=== PATIENT | female | born 1975 | race Caucasian/White ===

== ENCOUNTER 2018-10-26 16:00 | Outpatient (RCR) | payer BC, SELFPAY | END 2018-10-26 16:05 | disposition home or self-care (01) | LOC: PT 16:00 | DX: M86.20 Subacute osteomyelitis, unspecified site (principal) | CPT/HCPCS: 97163; 97164; 97597; 97598 ==

== ENCOUNTER 2020-03-22 07:58 | Outpatient (RCR) | payer BC, SELFPAY | END 2020-03-22 07:59 | disposition home or self-care (01) | LOC: PT 07:58 | PROVIDERS: PCP Family Medicine; Visit Provider Family Medicine | DX: M76.31 Iliotibial band syndrome, right leg (principal) ==

== ENCOUNTER 2020-03-26 09:19 | Emergency (ER) | payer BC, SELFPAY ==
[2020-03-26 09:30] VITALS: BP 137/83; PULSE 96; RESP 16; TEMP 36.9; O2SAT 96; BMI 58.5
[2020-03-26 09:53] VITALS: BP 137/83; PULSE 96; RESP 16; TEMP 36.9; O2SAT 96
--- NOTE | 2020-03-26 09:53 | HMH.EDUTC ---
[facility] [place]ression: Exposure to COVID-19 virus Disposition: Home, Self-Care Condition on Discharge: Good Instructions: Preventing the Spread of Coronavirus Discharge Instructions Additional Instructions: Drink plenty of fluids. Take tylenol for pain or fever. Follow up with your regular doctor. GO TO THE ER FOR ANY WORSENING SYMPTOMS Referrals: Barbara Florian [Primary Care Provider] - Time of Disposition: 09:56 Medical Decision Making - Medical Records Medical records reviewed: No: I reviewed the patient's medical records. - Jones Inquiry Pt receiving controlled substance: No Vital Signs: 03/26/20 09:30 03/26/20 09:53 Temperature 98.4 F 98.4 F Temperature Source Oral Pulse Rate 96 H Pulse Rate [Left Brachial] 96 H Respiratory Rate 16 16 Blood Pressure 137/83 Blood Pressure [Left Arm] 137/83 Blood Pressure Mean [Left Arm] 101 Blood Pressure Source [Left Arm] Automatic Cuff Blood Pressure Position [Left Arm] Sitting 02 Sat by Pulse Oximetry 96 Oxygen Delivery Method Room Air Orders (Tests/Meds): ORDERS Category Date Time Status Covid-19 Nasal PCR ([facility]) Routine Lab 03/26/20 09:45 [place] [facility] [place] - General Stated complaint: covid exposure Time Seen by Provider: 03/26/20 09:53 - History of Present Illness Provider Complaint: She states that that she was exposed to covid virus at her cardiology office last week. She denies any symptoms so far. - Related Data Home Medications Medication Instructions Recorded Confirmed Insulin Glargine,Hum.rec.anlog 45 unit SQ BID 10/03/17 07/04/19 [Chrisaglar Pravin U-100] buspirone 10 mg tablet 10 mg PO tab 07/04/19 07/04/19 triamcinolone acetonide 0.1 % TOPICAL 07/04/19 07/04/19 topical cream Previous Rx's Medication Instructions Recorded Amoxicillin/Potassium Clav 1 tab PO Q12H 10 Days #20 tab 08/02/19 [Augmentin 875-125 Tablet] predniSONE [Deltasone 10mg tablet] 10 mg PO BID 4 Days #8 tab 08/02/19 Allergies Allergy/AdvReac Type Severity Reaction Status Date / Time azithromycin [AZITHROMYCIN] Allergy Mild Verified 07/04/19 16:02 sulfamethoxazole Allergy Mild Verified 07/04/19 16:02 [From BACTRIM] trimethoprim [From BACTRIM] Allergy Mild Verified 07/04/19 16:02 [facility] History - Hepatitis A Screen Attestation statement:: This patient has been screened for Hepatitis A risk factors. I have reviewed the patient's past medical history: Yes Medical History: Reports:: Diabetes Mellitus Type 2 Denies:: Cancer, Diabetes Mellitus Type 1, MRSA Other Surgeries: Yes: (x2), Hernia Repair, Hysterectomy-Total Amputation: No Fractures: No - Social History Smoking Status: Never smoker Alcohol Intake: never Occupational Status: employed Family Hx:: Diabetes, Cancer, Heart Attack, Hyperlipidemia, Hypertension ROS Obtained: Yes All systems reviewed & no additional complaints - Constitutional Constitutional: Reports system reviewed and no additional complaints, except as docu - Eyes Eyes: Reports system reviewed and no additional complaints, except as docu - ENT Ears, Nose, Mouth, and Throat: Reports system reviewed and no additional complaints, except as docu - Cardiovascular Cardiovascular: Reports system reviewed and no additional complaints, except as docu - Respiratory Respiratory: Yes system reviewed and no additional complaints, except as docu - Gastrointestinal Gastrointestingal: Reports: system reviewed and no additional complaints, except as docu Physical Exam - General General appearance: alert, in no apparent distress - Head Head exam: atraumatic, normocephalic, normal inspection - Eye Eye exam: Present: normal appearance, PERRL, EOMI - ENT ENT exam: Present: normal exam, normal oropharynx, mucous membranes moist, TM's normal bilaterally, normal external ear exam - Neck Neck exam: Present: normal inspection, full ROM,
--- NOTE | 2020-03-26 14:25 | PC.NURSE ---
PATIENT NOTIFIED OF POSITIVE COVID RESULT
== END 2020-03-26 09:55 | disposition home or self-care (01) ==
PROVIDERS: Emergency Provider Nurse Practitioner Family; PCP Family Medicine
DX: U07.1 COVID-19 (principal); E11.9 Type 2 diabetes mellitus without complications; Z88.1 Allergy status to other antibiotic agents; Z88.2 Allergy status to sulfonamides; Z79.899 Other long term (current) drug therapy
CPT/HCPCS: 99201; U0003

== ENCOUNTER → 2020-07-17 05:21 | Outpatient (CLI) | payer BC, SELFPAY ==
[2020-07-17 06:30] LABS: Hemoglobin A1C 9.2 % (4.0-6.0)
[2020-07-17 06:53] LABS: Basophils % 0.6 % (0.1-2.0); Eosinophils # 0.1 K/mm3 (0.0-0.4); Hematocrit 42.8 % (37.0-47.0); Hemoglobin 13.6 g/dL (12.2-16.2); Lymphocytes # 1.8 K/mm3 (0.7-4.5); Lymphocytes % 26.5 % (10-50); Mean Corpuscular HGB Conc 31.9 g/dL (31.8-35.4); Mean Corpuscular Hemoglobin 27.9 pg (27.0-31.2); Mean Corpuscular Volume 87.4 fl (81-99); Mean Platelet Volume 7.9 fl (7.4-10.4); Monocytes # 0.4 K/mm3 (0.1-1.0); Monocytes % 5.4 % (1.7-9.3); Neutrophils # 4.5 K/mm3 (1.8-7.8); Neutrophils % 65.4 % (37.0-80.0); Platelet Count 244 K/mm3 (142-424); Red Cell Distribution Width 14.1 % (11.5-17.5); White Blood Count 6.9 K/mm3 (4.8-10.8)
[2020-07-17 06:58] LABS: Chloride 104 mmol/L (98-107); Potassium 4.2 mmoL/L (3.5-5.1); Sodium 138 mmol/L (136-145)
[2020-07-17 07:00] LABS: Alanine Aminotransferase 26 U/L (12-78); Alkaline Phosphatase 67 U/L (38-126); Aspartate Amino Transferase 23 U/L (14-36); Bilirubin,Total 0.4 mg/dl (0.2-1.3); Blood Urea Nitrogen 13 mg/dl (7-17); Estimated Glomerular Filt Rate 132 ml/min (>60); GFR (African American) 160 ML/MIN (>60)
[2020-07-17 07:01] LABS: Albumin Level 3.8 g/dl (3.5-5.0); Albumin/Globulin Ratio 1.1 (1.1-1.8); Anion Gap 9.2 mEq/L (5-15); Calcium 9.4 mg/dl (8.4-10.2); Carbon Dioxide 29 mmol/L (22.0-30.0); Chol/HDL Ratio 7.8 (1-3.5); Cholesterol 219 mg/dl (140-200); Globulin 3.4 g/dL (1.3-3.2); Glucose 228 mg/dl (74-100); HDL Cholesterol 28 mg/dl (40-60); Iron 65 ug/dL (37-170); Magnesium 1.7 mg/dl (1.6-2.3); Phosphorous 4.6 mg/dl (2.5-4.5); Total Protein,Serum 7.2 g/dl (6.3-8.2); Triglycerides 216 mg/dl (30-150); VLDL Cholesterol 43 mg/dL (0-40)
[2020-07-17 07:12] LABS: Direct LDL Cholesterol 133.77 mg/dL (100-129)
[2020-07-17 07:30] LABS: Thyroid Stimulating Hormone 0.86 uIU/mL (0.465-4.68)
[2020-07-17 07:34] LABS: Ferritin 77.3 ng/ml (6.24-137)
[2020-07-17 08:05] LABS: Folate 7.41 ng/mL
[2020-07-18 14:32] LABS: Prealbumin 17 mg/dL (12-34)
[2020-07-21 23:19] LABS: Vitamin E Alpha Tocopherol 12.9 mg/L (7.0-25.1)
[2020-07-22 07:11] LABS: Vitamin E Gamma Tocopherol 1.4 mg/L (0.5-5.5)
[2020-07-22 16:34] LABS: Vitamin A 22.6 ug/dL (20.1-62.0); Vitamin B1 112.2 nmol/L (66.5-200.0)
[2020-07-22 18:01] LABS: Methylmalonic Acid 185 nmol/L (0-378)
[2020-07-25 14:57] LABS: 1,25 Dihydroxy Vitamin D 69 pg/mL (.); 1,25-Dihydroxy, Vitamin D-2 <10 pg/mL (.); 1,25-Dihydroxy, Vitamin D-3 69 pg/mL (.)
== END ==
PROVIDERS: PCP Physician Assistant; Visit Provider Physician Assistant
DX: E11.9 Type 2 diabetes mellitus without complications (principal); E78.5 Hyperlipidemia, unspecified; M54.9 Dorsalgia, unspecified; Z68.43 Body mass index [BMI] 50.0-59.9, adult; Z79.4 Long term (current) use of insulin
CPT/HCPCS: 80053; 80061; 82131; 82652; 82728; 82746; 83036; 83540; 83735; 83970; 84100; 84134; 84425; 84443; 84446; 84590; 85025

== ENCOUNTER 2021-06-28 18:08 | Emergency (ER) | payer BC, SELFPAY ==
[2021-06-28 18:09] VITALS: BP 150/86; PULSE 85; RESP 20; TEMP 36.6; O2SAT 98; BMI 54.8
[2021-06-28 18:10] VITALS: BP 148/64; PULSE 87; RESP 28; O2SAT 96; BMI 44.1
--- NOTE | 2021-06-28 18:15 | PC.NURSE ---
PATIENT SENT TO ER PER Sophia HERNANDEZ APRN FOR FURTHER EVALUATION. REPORT GIVEN TO Timothy QUINTANILLA RN
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
[2021-06-28 18:32] VITALS: BP 127/61; PULSE 81; O2SAT 98
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
--- NOTE | 2021-06-28 18:46 | PC.NURSE ---
pt to rad.
[2021-06-28 18:50] LABS: Basophils # 0.1 K/mm3 (0-0.2); Basophils % 1.1 % (0.1-2.0); Eosinophils # 0.2 K/mm3 (0.0-0.4); Eosinophils % 2.6 % (0.1-12.0); Hematocrit 44.8 % (37.0-47.0); Lymphocytes # 1.9 K/mm3 (0.7-4.5); Lymphocytes % 22.8 % (10-50); Mean Corpuscular HGB Conc 31.1 g/dL (31.8-35.4); Mean Corpuscular Hemoglobin 28.2 pg (27.0-31.2); Mean Corpuscular Volume 90.6 fl (81-99); Monocytes # 0.5 K/mm3 (0.1-1.0); Monocytes % 5.3 % (1.7-9.3); Neutrophils # 5.8 K/mm3 (1.8-7.8); Neutrophils % 68.3 % (37.0-80.0); Platelet Count 288 K/mm3 (142-424); Red Blood Count 4.95 M/mm3 (4.20-5.40); Red Cell Distribution Width 13.4 % (11.5-17.5); White Blood Count 8.5 K/mm3 (4.8-10.8)
[2021-06-28 19:00] LABS: Chloride 103 mmol/L (98-107); Potassium 4.2 mmoL/L (3.5-5.1); Sodium 137 mmol/L (136-145)
[2021-06-28 19:02] LABS: Alanine Aminotransferase 29 U/L (12-78); Alkaline Phosphatase 69 U/L (38-126); Aspartate Amino Transferase 36 U/L (14-36); Bilirubin,Total 0.4 mg/dl (0.2-1.3); Blood Urea Nitrogen 9 mg/dl (7-17); Creatinine Clearance Estimated 125 mL/min (50-200); Estimated Glomerular Filt Rate 132 ml/min (>60); GFR (African American) 160 ML/MIN (>60)
[2021-06-28 19:03] LABS: Albumin Level 4.1 g/dl (3.5-5.0); Albumin/Globulin Ratio 1.1 (1.1-1.8); Anion Gap 8.2 mEq/L (5-15); Calcium 9.2 mg/dl (8.4-10.2); Carbon Dioxide 30 mmol/L (22.0-30.0); Globulin 3.6 g/dL (1.3-3.2); Glucose 130 mg/dl (74-100); Lipase 58 U/L (23-300); Total Protein,Serum 7.7 g/dl (6.3-8.2)
--- NOTE | 2021-06-28 19:25 | PC.NURSE ---
pt back from ct
--- NOTE | 2021-06-28 19:55 | PC.NURSE ---
gave pt teaching with IS, pt demonstrated use
[2021-06-28 20:06] VITALS: BP 127/61; PULSE 81; RESP 20; TEMP 36.8; O2SAT 98
== END 2021-06-28 20:10 | disposition home or self-care (01) ==
LOC: UTC 18:11 → ER 18:20
PROVIDERS: Emergency Provider Emergency Medicine; PCP Family Medicine
DX: S22.32XA Fracture of one rib, left side, initial encounter for closed fracture (principal); E11.9 Type 2 diabetes mellitus without complications; V49.88XA Car occupant (driver) (passenger) injured in other specified transport accidents, initial encounter
CPT/HCPCS: 71260; 72128; 72131; 73060; 73090; 74177; 80053; 83690; 85025; 99283; J2405; Q9967

== ENCOUNTER → 2021-10-01 17:49 | Outpatient (CLI) | payer BC, SELFPAY ==
--- NOTE | 2021-10-01 18:07 | XR_ITS ---
PROCEDURE INFORMATION: Exam: XR Right Foot Exam date and time: 10/01/21 06:09 PM Age: 46 years old Clinical indication: Pain; Foot; Right; Additional info: Foot pain TECHNIQUE: Imaging protocol: XR Right foot. Views: 3 or more views. COMPARISON: No relevant prior studies available. FINDINGS: Bones/joints: Enthesopathic changes at the Achilles tendon insertion and plantar aponeurosis insertions. Soft tissues: Normal. IMPRESSION: Enthesopathic changes at the Achilles tendon insertion and plantar aponeurosis insertions.
--- NOTE | 2021-10-01 18:07 | XR_ITS ---
PROCEDURE INFORMATION: Exam: XR Right Ankle Exam date and time: 10/01/21 06:09 PM Age: 46 years old Clinical indication: Pain; Ankle; Right TECHNIQUE: Imaging protocol: XR Right ankle. Views: 3 or more views. COMPARISON: No relevant prior studies available. FINDINGS: Bones/joints: Enthesopathic changes at the Achilles tendon and plantar aponeurosis insertions. Soft tissues: Subcutaneous phleboliths. IMPRESSION: Enthesopathic changes at the Achilles tendon and plantar aponeurosis insertions.
--- NOTE | 2021-10-01 18:07 | XR_ITS ---
PROCEDURE INFORMATION: Exam: XR Left Ankle Exam date and time: 10/01/21 06:09 PM Age: 46 years old Clinical indication: Pain; Ankle; Left TECHNIQUE: Imaging protocol: XR Left ankle. Views: 3 or more views. COMPARISON: CR [id number] 02/07/15 08:32 AM FINDINGS: Bones/joints: Enthesopathic changes at the Achilles tendon insertion and mild at the plantar aponeurosis insertion. Soft tissues: Subcutaneous phleboliths. IMPRESSION: 1. Enthesopathic changes at the Achilles tendon insertion and mild at the plantar aponeurosis insertion. 2. Subcutaneous phleboliths.
--- NOTE | 2021-10-01 18:07 | XR_ITS ---
PROCEDURE INFORMATION: Exam: XR Left Foot Complete; Alignment Exam date and time: 10/01/21 06:09 PM Age: 46 years old Clinical indication: Pain; Foot; Left; Additional info: Foot pain TECHNIQUE: Imaging protocol: XR Left foot. Views: 3 or more views. COMPARISON: CR [id number] [id number] 02/07/15 08:32 AM FINDINGS: Bones/joints: Normal. No acute fracture. Joint spaces are preserved. No dislocation or subluxation. Soft tissues: Normal. IMPRESSION: Normal alignment of the foot.
== END ==
PROVIDERS: PCP Family Medicine; Visit Provider Podiatrist
DX: M79.671 Pain in right foot (principal); M25.571 Pain in right ankle and joints of right foot; M79.672 Pain in left foot; M25.572 Pain in left ankle and joints of left foot
CPT/HCPCS: 73610; 73630

== ENCOUNTER → 2022-02-19 10:23 | Outpatient (CLI) | payer OTHER, BC, SELFPAY ==
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
== END ==
PROVIDERS: PCP Family Medicine; Visit Provider Nurse Practitioner Family
DX: M25.512 Pain in left shoulder (principal); M54.50 Low back pain, unspecified; V89.2XXA Person injured in unspecified motor-vehicle accident, traffic, initial encounter
CPT/HCPCS: 72084; 73030

== ENCOUNTER 2022-03-24 09:43 | Emergency (ER) | payer BC, SELFPAY ==
[2022-03-24 10:45] VITALS: BP 143/62; PULSE 92; RESP 24; TEMP 37.2; O2SAT 96; BMI 58.1
--- NOTE | 2022-03-24 10:55 | EXP.UTC ---
Discharge Plan Disposition Patient Disposition: Home, Self-Care Condition: Good Prescriptions Prescriptions: New benzonatate [benzonatate] 100 mg capsule 100 mg PO TIDP PRN (Reason: Cough) Qty: 30 0RF oseltamivir [Tamiflu] 75 mg capsule 75 mg PO BID Qty: 10 0RF methylprednisolone 4 mg Tablets,Dose Pack 4 mg PO DIRECTED Qty: 21 0RF No Action triamcinolone acetonide 0.1 % cream TOPICAL Label Comments: APPLY AND RUB IN A THIN FILM TO AFFECTED AREAS TWICE DAILY (AM AND PM) buspirone 10 mg tablet 10 mg PO Label Comments: TAKE 1 TABLET BY MOUTH TWICE TO THREE TIMES DAILY NEEDED FOR ANXIETY omeprazole 20 mg capsule,delayed release(DR/EC) 20 mg PO insulin glargine 100 UNIT/ML insulin pen 45 unit SQ BID hydrocodone-acetaminophen 1 TAB tablet 1 tab PO Q6HP PRN (Reason: Pain) Qty: 20 0RF Referrals Follow up/Referrals: Barbara Florian [Primary Care Provider] - See instructions Activity Restrictions/Add. Instructions Additional Instructions/Restrictions: Drink plenty of fluids. Take tylenol or ibuprofen for pain or fever. Take the medications as directed. Follow up with your regular doctor. GO TO THE ER FOR ANY WORSENING SYMPTOMS Clinical Impressions Clinical Impression: Influenza A Stand Alone Forms Stand Alone Forms: Work/School Release Instructions Patient Instructions: DI for Influenza -- Adult, Oseltamivir Discharge ED [place] [facility] [place] General Stated complaint: Chills,Ear ache Time Seen by Provider: 03/24/22 10:55 History of Present Illness Provider Complaint: She states that for the past 2 days she has had body aches, chills, fever, sinus congestion and a cough. Related Data Home Medications Medication Instructions Recorded Confirmed insulin glargine 100 unit/mL (3 45 unit SQ BID Diabetes 10/03/17 11/27/21 mL) subcutaneous pen buspirone 10 mg tablet 10 mg PO 07/04/19 11/27/21 triamcinolone acetonide 0.1 % topical 07/04/19 11/27/21 topical cream omeprazole 20 mg capsule,delayed 20 mg PO 05/06/21 11/27/21 release Previous Rx's Medication Instructions Recorded hydrocodone 5 mg-acetaminophen 325 1 tab PO Q6HP PRN Pain #20 tabs 06/28/21 mg tablet benzonatate 100 mg capsule 100 mg PO TIDP PRN Cough #30 caps 03/24/22 methylprednisolone 4 mg tablets in 4 mg PO DIRECTED #21 tabs 03/24/22 a dose pack oseltamivir 75 mg capsule (Tamiflu) 75 mg PO BID #10 caps 03/24/22 Allergies Allergy/AdvReac Type Severity Reaction Status Date / Time azithromycin [AZITHROMYCIN] Allergy Mild Verified 11/27/21 09:08 sulfamethoxazole Allergy Mild Verified 11/27/21 09:08 [From BACTRIM] trimethoprim [From BACTRIM] Allergy Mild Verified 11/27/21 09:08 [facility] Medical History Diabetes mellitus, type 2 Surgical History History of section Social History Smoking Status: Never smoker alcohol intake: never current occupational status: other Travel in the last 8 weeks: None current occupational exposures/hazards: No ROS Obtained: Yes All systems reviewed & no additional complaints except as documented Constitutional Constitutional: Reports chills and Reports fever(s) Eyes Eyes: Denies eye discharge ENT Ears, Nose, Mouth, and Throat: Reports as per HPI Cardiovascular Cardiovascular: Denies chest pain Respiratory Respiratory: Denies chest congestion and Reports cough Gastrointestinal Gastrointestingal: Reports nausea; Denies abdominal pain, constipation, cramping, diarrhea or vomiting Musculoskeletal Musculoskeletal: Denies arthralgias Integumentary/Breasts Skin/Breast: Denies rash Neurologic Neurologic: Denies paresthesias Physical Exam General General appearance: alert and in no apparent distress He
[2022-03-24 11:00] LABS: UTC Influenza A Antigen Positive (Negative); UTC Influenza B Antigen Negative (Negative)
[2022-03-24 11:08] VITALS: BP 143/62; PULSE 92; RESP 24; TEMP 37.2; O2SAT 96
== END 2022-03-24 11:12 | disposition home or self-care (01) ==
PROVIDERS: Emergency Provider Nurse Practitioner Family; PCP Family Medicine
DX: J10.1 Influenza due to other identified influenza virus with other respiratory manifestations (principal)
CPT/HCPCS: 87804; 99212; G0463

== ENCOUNTER 2022-04-01 17:00 | Outpatient (RCR) | payer OTHER, SELFPAY | END 2022-04-01 17:05 | disposition home or self-care (01) | LOC: PT 17:00 | PROVIDERS: Visit Provider Orthopaedic Surgery Adult Reconstructive Orthopaedic Surgery | DX: M54.50 Low back pain, unspecified (principal); M25.512 Pain in left shoulder | CPT/HCPCS: 97010; 97014; 97110; 97163; 97535; G0283 ==

== ENCOUNTER → 2022-04-23 07:36 | Outpatient (CLI) | payer OTHER, BC, SELFPAY ==
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
== END ==
PROVIDERS: PCP Family Medicine; Visit Provider Orthopaedic Surgery Adult Reconstructive Orthopaedic Surgery
DX: M25.512 Pain in left shoulder (principal)
CPT/HCPCS: 73221

== ENCOUNTER → 2022-05-31 08:41 | Outpatient (CLI) | payer BC, SELFPAY ==
[2022-05-31 08:45] LABS: MANUAL DIFFERENTIAL MANUAL DIFFERENTIAL (MANUAL DIFF)
[2022-05-31 10:18] LABS: Basophils # 0.1 K/mm3 (0-0.2); Basophils % 0.9 % (0.1-2.0); Eosinophils # 0.2 K/mm3 (0.0-0.4); Eosinophils % 2.3 % (0.1-12.0); Hematocrit 45.8 % (37.0-47.0); Lymphocytes # 1.6 K/mm3 (0.7-4.5); Lymphocytes % 20.7 % (10-50); Mean Corpuscular HGB Conc 30.5 g/dL (31.8-35.4); Mean Corpuscular Hemoglobin 28.3 pg (27.0-31.2); Mean Corpuscular Volume 92.7 fl (81-99); Mean Platelet Volume 8.4 fl (7.4-10.4); Monocytes # 0.4 K/mm3 (0.1-1.0); Monocytes % 5.1 % (1.7-9.3); Neutrophils # 5.5 K/mm3 (1.8-7.8); Neutrophils % 70.9 % (37.0-80.0); Platelet Count 320 K/mm3 (142-424); Red Blood Count 4.94 M/mm3 (4.20-5.40); Red Cell Distribution Width 13.7 % (11.5-17.5); White Blood Count 7.8 K/mm3 (4.8-10.8)
[2022-05-31 11:05] LABS: Hemoglobin A1C 10.2 % (4.0-6.0)
[2022-05-31 11:29] LABS: Eosinophils % 2 % (0-3); Lymphocytes % 18 % (10-50); Monocytes % 2 % (2-9); Neutrophils % 78 % (42-76); Platelet Estimate Normal; RBC Morphology Normal; Total Cells Counted 100
[2022-05-31 11:43] LABS: Alanine Aminotransferase 42 U/L (12-78); Albumin Level 3.7 g/dl (3.5-5.0); Albumin/Globulin Ratio 1.2 (1.1-1.8); Alkaline Phosphatase 78 U/L (38-126); Anion Gap 10.3 mEq/L (5-15); Aspartate Amino Transferase 33 U/L (14-36); Bilirubin,Total 0.4 mg/dl (0.2-1.3); Blood Urea Nitrogen 8 mg/dl (7-17); Calcium 8.6 mg/dl (8.4-10.2); Carbon Dioxide 30 mmol/L (22.0-30.0); Chloride 102 mmol/L (98-107); Chol/HDL Ratio 6.6 (1-3.5); Cholesterol 212 mg/dl (140-200); Estimated Glomerular Filt Rate 132 ml/min (>60); GFR (African American) 159 ML/MIN (>60); Glucose 181 mg/dl (74-100); HDL Cholesterol 32 mg/dl (40-60); Potassium 4.3 mmoL/L (3.5-5.1); Sodium 138 mmol/L (136-145); Total Protein,Serum 6.7 g/dl (6.3-8.2); Triglycerides 163 mg/dl (30-150); VLDL Cholesterol 33 mg/dL (0-40)
[2022-05-31 11:54] LABS: Direct LDL Cholesterol 142.75 mg/dL (100-129)
[2022-05-31 12:12] LABS: Thyroid Stimulating Hormone 0.45 uIU/mL (0.465-4.68)
== END ==
PROVIDERS: PCP Family Medicine; Visit Provider Family Medicine
DX: E11.9 Type 2 diabetes mellitus without complications (principal); M25.532 Pain in left wrist; M25.531 Pain in right wrist; Z79.4 Long term (current) use of insulin; Z79.899 Other long term (current) drug therapy
CPT/HCPCS: 36415; 80053; 80061; 83036; 84443; 85007; 85014; 85018; 85048; 85049

== ENCOUNTER → 2022-06-12 08:19 | Outpatient (CLI) | payer BC, SELFPAY ==
[2022-06-12 08:25] LABS: Microscopic, Urine URINE MICROSCOPIC (MICROSCOPIC)
[2022-06-12 08:39] LABS: Appearance,Urine CLEAR (Clear); Bilirubin,Urine Negative (Negative); Blood, Urine Negative (Negative); Color,Urine YELLOW (Yellow); Glucose,Urine (UA) 2+ (Negative); Ketones,Urine TRACE (Negative); Leukocyte Esterase,Urine Negative (Negative); Nitrate,Urine Negative (Negative); Protein,Urine Negative (Negative); Specific Gravity, Urine 1.025 (1.005-1.030)
[2022-06-12 08:47] LABS: Squamous Epithelial Cell,Urine Occasional #/hpf (0-5)
== END ==
PROVIDERS: PCP Family Medicine; Visit Provider Family Medicine
DX: M79.604 Pain in right leg (principal); M79.605 Pain in left leg; E11.9 Type 2 diabetes mellitus without complications; Z79.4 Long term (current) use of insulin
CPT/HCPCS: 81001; 82043; 93923

== ENCOUNTER → 2022-07-03 07:54 | Outpatient (CLI) | payer BC, SELFPAY ==
--- NOTE | 2022-07-03 07:58 | XR_ITS ---
FINAL REPORT CLINICAL HISTORY: wrist pain FINDINGS: RIGHT WRIST Three views demonstrate no acute fracture or dislocation. The visualized joint spaces are normally aligned. The joint spaces are intact. The soft tissues are unremarkable. IMPRESSION: No acute bony abnormality. Reviewed, Interpreted and Dictated by Kirby Garcia MD Transcribed by Mell Clement Authenticated and . [facility]
--- NOTE | 2022-07-03 07:58 | XR_ITS ---
FINAL REPORT CLINICAL HISTORY: wrist pain FINDINGS: LEFT WRIST Three views demonstrate no acute fracture or dislocation. The visualized joint spaces are normally aligned. The joint spaces are intact. The soft tissues are unremarkable. IMPRESSION: No acute bony abnormality. Reviewed, Interpreted and Dictated by Kirby Garcia MD Transcribed by Mell Clement Authenticated and [facility]
== END ==
PROVIDERS: PCP Family Medicine; Visit Provider Orthopaedic Surgery
DX: M25.532 Pain in left wrist (principal); M25.531 Pain in right wrist
CPT/HCPCS: 73110

== ENCOUNTER → 2022-08-14 07:45 | Outpatient (CLI) | payer BC, SELFPAY ==
--- NOTE | 2022-08-14 07:46 | CA_ITS ---
FINAL REPORT CLINICAL HISTORY: BLE PAIN,OBESITY FINDINGS: BILATERAL LOWER EXTREMITY DUPLEX DOPPLER Color Doppler and duplex Doppler of the bilateral lower extremity was performed. Spectral analysis was also performed. Velocities were measured at multiple levels. All velocities are in centimeters per second. RIGHT PARTS ORDER AND STOCK CLERK: 118 SFA Prox: 156 SFA Mid: 128 SFA Distal: 130 Pop: 76 LEATHER WHITENER: 74 GELY: 121 Waveforms are triphasic/biphasic. LEFT PARTS ORDER AND STOCK CLERK: 127 SFA Prox: 110 SFA Mid: 149 SFA Distal: 108 Pop: 80 LEATHER WHITENER: 68 GELY: 71 Waveforms are triphasic/biphasic. IMPRESSION: No evidence of significant vascular disease. Consider MRA or CTA as a more sensitive exam. Reviewed, Interpreted and Dictated by Kirby Garcia MD Transcribed by Mell Clement Authenticated and [facility]
[2022-08-14 09:44] LABS: Alanine Aminotransferase 50 U/L (12-78); Albumin Level 3.6 g/dl (3.5-5.0); Albumin/Globulin Ratio 1.3 (1.1-1.8); Alkaline Phosphatase 79 U/L (38-126); Anion Gap 11.2 mEq/L (5-15); Aspartate Amino Transferase 40 U/L (14-36); Bilirubin,Total 0.4 mg/dl (0.2-1.3); Blood Urea Nitrogen 8 mg/dl (7-17); Calcium 8.5 mg/dl (8.4-10.2); Carbon Dioxide 29 mmol/L (22.0-30.0); Chloride 100 mmol/L (98-107); Cholesterol 188 mg/dl (140-200); Estimated Glomerular Filt Rate 170 ml/min (>60); GFR (African American) 205 ML/MIN (>60); Globulin 2.8 g/dL (1.3-3.2); Glucose 279 mg/dl (74-100); HDL Cholesterol 27 mg/dl (40-60); Potassium 4.2 mmoL/L (3.5-5.1); Sodium 136 mmol/L (136-145); Total Protein,Serum 6.4 g/dl (6.3-8.2); Triglycerides 197 mg/dl (30-150); VLDL Cholesterol 39 mg/dL (0-40)
[2022-08-14 09:56] LABS: Direct LDL Cholesterol 130.34 mg/dL (100-129)
[2022-08-14 10:51] LABS: Folate 9.38 ng/mL; Vitamin B12 296 pg/mL (239-931)
[2022-08-16 08:20] LABS: Homocyst(e)ine 7.9 umol/L (0.0-14.5)
[2022-08-19 06:05] LABS: Methylmalonic Acid 169 nmol/L (0-378)
== END ==
PROVIDERS: PCP Family Medicine; Referring Provider Nurse Practitioner Family; Visit Provider Family Medicine
DX: M79.604 Pain in right leg (principal); M79.605 Pain in left leg; R68.89 Other general symptoms and signs; E11.9 Type 2 diabetes mellitus without complications; E78.5 Hyperlipidemia, unspecified; M25.531 Pain in right wrist; M25.532 Pain in left wrist; R20.0 Anesthesia of skin; R20.2 Paresthesia of skin; E53.8 Deficiency of other specified B group vitamins; Z79.4 Long term (current) use of insulin
CPT/HCPCS: 36415; 80053; 80061; 82131; 82607; 82746; 83090; 93925

== ENCOUNTER → 2022-08-27 07:49 | Outpatient (CLI) | payer BC, SELFPAY ==
--- NOTE | 2022-08-27 07:55 | MR_ITS ---
FINAL REPORT CLINICAL HISTORY: right wrist pain, tingling, no injury COMPARISON: none FINDINGS: Multiplanar MR imaging of the right wrist was performed without contrast. The bony structures are intact without evidence of fracture, bone bruise or marrow edema. There is no significant positive or negative ulnar variance. There is no evidence of intrinsic ligament injury. The triangular fibrocartilage is intact. The flexor and extensor tendons are intact. No soft tissue mass or cyst is identified. No focal abnormality is identified of the median nerve. On the sagittal view, the wrist is held in dorsiflexion. IMPRESSION: No acute findings. Reviewed, Interpreted and Dictated by Kirby Garcia MD Transcribed by Jeannette Alvarez Authenticated and [facility]
== END ==
PROVIDERS: PCP Family Medicine; Visit Provider Orthopaedic Surgery
DX: M25.531 Pain in right wrist (principal)
CPT/HCPCS: 73221

== ENCOUNTER → 2022-09-13 09:08 | Outpatient (CLI) | payer BC, SELFPAY ==
[2022-09-13 10:48] LABS: Hemoglobin A1C 8.7 % (4.0-6.0)
[2022-09-13 11:23] LABS: Alanine Aminotransferase 49 U/L (12-78); Albumin Level 3.5 g/dl (3.5-5.0); Albumin/Globulin Ratio 1.2 (1.1-1.8); Alkaline Phosphatase 80 U/L (38-126); Anion Gap 11.4 mEq/L (5-15); Aspartate Amino Transferase 43 U/L (14-36); Bilirubin,Total 0.5 mg/dl (0.2-1.3); Blood Urea Nitrogen 6 mg/dl (7-17); Calcium 8.6 mg/dl (8.4-10.2); Carbon Dioxide 29 mmol/L (22.0-30.0); Chloride 101 mmol/L (98-107); Chol/HDL Ratio 7.4 (1-3.5); Cholesterol 207 mg/dl (140-200); Estimated Glomerular Filt Rate 170 ml/min (>60); GFR (African American) 205 ML/MIN (>60); Glucose 196 mg/dl (74-100); HDL Cholesterol 28 mg/dl (40-60); Potassium 4.4 mmoL/L (3.5-5.1); Sodium 137 mmol/L (136-145); Total Protein,Serum 6.5 g/dl (6.3-8.2); Triglycerides 183 mg/dl (30-150); VLDL Cholesterol 37 mg/dL (0-40)
[2022-09-13 11:34] LABS: Direct LDL Cholesterol 146.41 mg/dL (100-129)
== END ==
PROVIDERS: PCP Family Medicine; Visit Provider Family Medicine
DX: E11.9 Type 2 diabetes mellitus without complications (principal); E78.5 Hyperlipidemia, unspecified; Z79.4 Long term (current) use of insulin
CPT/HCPCS: 36415; 80053; 80061; 83036

== ENCOUNTER → 2022-11-06 08:53 | Outpatient (POV) | payer BC, SELFPAY ==
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
[2022-11-06 10:45] VITALS: BP 121/51; PULSE 88; RESP 18; TEMP 36.9; O2SAT 96; BMI 59.4
== END ==
PROVIDERS: Visit Provider Nurse Practitioner Family
DX: M25.512 Pain in left shoulder (principal); M25.531 Pain in right wrist; M25.532 Pain in left wrist; M51.16 Intervertebral disc disorders with radiculopathy, lumbar region; M51.34 Other intervertebral disc degeneration, thoracic region
CPT/HCPCS: 99202; G0463

== ENCOUNTER 2022-11-11 11:23 | Day surgery (SDC) | payer BC, SELFPAY ==
[2022-11-11 11:35] VITALS: BP 148/65; PULSE 100; RESP 18; TEMP 36.8; O2SAT 98; BMI 58.5
[2022-11-11 11:42] VITALS: BP 172/69; PULSE 101; RESP 18; O2SAT 95
[2022-11-11 11:43] VITALS: BP 172/69; PULSE 101; RESP 19; O2SAT 95
--- NOTE | 2022-11-11 11:49 | P.PCN_ITS ---
Procedure Date: 11/11/22 Time: 11:35 Anesthesiologist:: Sujit Lea CRNA Complications:: None Pre-procedure Diagnosis:: Osteoarthritis left shoulder. Chronic left shoulder pain. Post-procedure Diagnosis:: Same. Indications for Procedure:: Patient is a very pleasant 47-year-old female comes our clinic today for left intra-articular shoulder injection. Patient complains of left shoulder pain being constant, dull, achy. Difficulty with range of motion. Patient has good strength in her left arm. She rates her pain 8/10 Procedure Details:: Procedure Details: Left shoulder intra-articular injection Informed consent was obtained risk and benefits of the procedure were explained to the patient. Patient was taken to the procedure room. The left shoulder was prepped using ChloraPrep. A 25-gauge needle was used first anteriorly, later ally, and then posteriorly to inject 10 mL bupivacaine 0.25% and Depo-Medrol 40 mg. Patient tolerated procedure well with no complications. Plan and Disposition:: Patient was discharged without incident.
[2022-11-11 11:58] VITALS: BP 135/52; PULSE 102; RESP 18; O2SAT 98
== END 2022-11-11 11:58 | disposition home or self-care (01) ==
PROVIDERS: PCP Physician Assistant; Visit Provider Nurse Anesthetist, Certified Registered
DX: M19.012 Primary osteoarthritis, left shoulder (principal); M25.512 Pain in left shoulder; G89.29 Other chronic pain
CPT/HCPCS: 20610; J1040

== ENCOUNTER 2022-11-14 17:13 | Emergency (ER) | payer BC, SELFPAY ==
[2022-11-14 17:20] VITALS: BP 141/61; PULSE 90; RESP 22; TEMP 37.2; O2SAT 95; BMI 51.6
--- NOTE | 2022-11-14 17:38 | EXP.UTC ---
Discharge Plan Disposition Patient Disposition: Home, Self-Care Condition: Good Prescriptions Prescriptions: New promethazine 12.5 mg tablet 12.5 mg PO TID PRN (Reason: nausea and vomiting) Qty: 6 0RF No Action fluticasone propionate 50 mcg/actuation spray,suspension 1 spray intranasal DIRECTED PRN (Reason: ALLERGIES) atorvastatin 40 mg tablet 40 mg PO DAILY Novolin R FlexPen 100 unit/mL (3 mL) insulin pen 10 unit SQ BID (DME) pen needle, diabetic [BD Ultra-Fine Mini Pen Needle] 31 gauge x 3/16 needle See Rx Instructions .ROUTE .MEDSUPPLY Rx Instructions: As directed hydrochlorothiazide 12.5 mg tablet 12.5 mg PO DAILY insulin glargine [Basaglar KwikPen U-100 Insulin] 100 unit/mL (3 mL) insulin pen 38 unit SQ BID Rx Instructions: Increase each dose by 3 units every 3 days for blood sugars > 200. (DME) Dexcom G7 Sensor Device See Rx Instructions .ROUTE Rx Instructions: As directed (DME) Dexcom G7 Relief Operator Misc See Rx Instructions .ROUTE Rx Instructions: As directed (DME) pen needle, diabetic [BD Kathryn 2nd Gen Pen Needle] 32 gauge x 5/32 needle See Rx Instructions .Route Rx Instructions: As directed Mounjaro 2.5 mg/0.5 mL pen injector 2.5 mg SQ WEEKLY Referrals Follow up/Referrals: Patty Valles PA [Primary Care Provider] - See instructions Activity Restrictions/Add. Instructions Additional Instructions/Restrictions: Drink extra fluids with and between meals. If you have difficulty drinking, try very small amounts of water or suck on ice chips. ? Avoid fruit juices, as these do not replace minerals and can actually increase diarrhea. ? Children and adults can use sports drinks to replenish electrolytes. Younger children and infants should use products formulated for children, like oral rehydration solutions. ? Eat food in small amounts and let your stomach recover. ? Get lots of rest. You may feel tired or weak. ? No greasy or fried foods for the next 24-48 hours BRAT diet Bananas Rice Apples and Cale ? Make sure to drink plenty of liquids ? Return if needed ? Straight to ER if any life threatening symptoms ? as prescribed ? You was given an outpatient order for diarrhea panel, please collect specimen and bring back to outpatient lab then call back to the [facility] or follow up with family doctor for results ? Follow up with family doctor in the next 48-72 hours if no improvement or any worsening of symptoms Clinical Impressions Clinical Impression: Nausea vomiting and diarrhea Instructions Patient Instructions: Diarrhea, Promethazine Discharge ED Provider: Lizzie Meyer [facility] [place] HPI General Stated complaint: nausea, diarrhea Mode of Arrival: Ambulatory Source of Information: Patient Limitations: No Limitations Time Seen by Provider: 11/14/22 17:38 Description of Symptoms (Recalled from Triage Doc. by RN): PATIENT C/O DIARRHEA, NAUSEA AND DRY HEAVES SINCE THURSDAY. SHE STATES ON THURSDAY SHE RECEIVED A STEROID INJECTION TO LEFT SHOULDER AT PAIN MANAGEMENT HEENT Symptoms (Recalled from RN notes): No Resp Symptoms (Recalled from RN notes): No Skin Symptoms (Recalled from RN notes): No MS Symptoms (Recalled from RN notes): No Functional Status (Recalled from RN notes): WNL History of Present Illness Provider Complaint: Patient states that she had an injection in her shoulder on Thursday and when she woke up on Thu she was having nausea and diarrhea States that she has been taking zofran for the nausea but it has not helped much and has continued to have diarrhea States that today she was still having some nausea and still having diarrhea and wasnt sure what else she can do so she came in to get checked States that she is a diabetic but her FSBS have been ok Related Data Home Medications Medication Instructions Recor
[2022-11-14 18:20] VITALS: BP 141/61; PULSE 90; RESP 22; TEMP 37.2; O2SAT 95
== END 2022-11-14 18:22 | disposition home or self-care (01) ==
PROVIDERS: Emergency Provider Nurse Practitioner; PCP Physician Assistant
DX: R11.2 Nausea with vomiting, unspecified (principal); R19.7 Diarrhea, unspecified; E11.9 Type 2 diabetes mellitus without complications; Z79.4 Long term (current) use of insulin
CPT/HCPCS: 99212; 99214; G0463

== ENCOUNTER → 2022-11-26 13:08 | Outpatient (POV) | payer BC, SELFPAY ==
--- NOTE | 2022-11-26 13:33 | EXP.PAIN.SOA ---
[facility] Pain Management SOAP Note Subjective:: Patient is a pleasant 47-year-old female who presents today for follow-up of left shoulder intra-articular injection on 11/11/2022. We are currently treating the patient for degenerative disc disease of lumbar spine with lumbar radiculopathy symptoms, left shoulder pain, bilateral wrist pain, mid back pain. Today she rates her pain a 6 out of 10. Patient denies any new trauma or injury. She states that she did get 100% relief while the numbing medication was working however after it wore off she was back at her baseline and had no additional relief. She does state that her left shoulder causes the most pain on a day-to-day basis and describes it as an aching, throbbing sensation that is worse with increased activity. She states she continues to have limited range of motion in her left shoulder and that it does interfere with her ability perform activities of daily living such as cooking and cleaning. She does state that the very next day after this injection she did have a episode of diarrhea and she felt sick overall. She states she went to the [facility] and continued to have GI related symptoms for approximately 6 days. Patient does question whether or not if the steroid injection had anything to do with it. Patient has seen Dr. Alex johnston in the past for her shoulder and he was not necessarily recommending any surgical intervention. She does see Dr. Soto for her wrist pain and is scheduled for a follow-up coming up in November. At our last visit she was prescribed compounding cream however she states she has not noticed any additional relief with this. She denies any previous heart or kidney issues. She states in the past she has been tried on Celebrex however it caused a rash and GI upsets and that diclofenac made no additional improvement. Patients Jones is [phone]. Its been reviewed and appropriate. Review of Systems: General: No recent weight changes, no fever, no sleep disturbances Respiratory: No cough, no shortness of air, no recurring pulmonary infections Cardiovascular/peripheral vascular: No chest pain, no palpitations, no edema, no shortness of breath Gastrointestinal: No new onset incontinence, normal bowel movements reported Genitourinary: No new onset incontinence Musculoskeletal: Left shoulder pain Psychiatric: [Normal mood/affect] Neurological: [Denies weakness in extremities], [denies balance issues] Objective:: Physical Exam: General: Alert and oriented x3, no acute distress, pleasant and cooperative Lungs: Respirations even and unlabored, symmetrical chest expansion Eyes: PERRL Musculoskeletal: Flexion and extension of left shoulder somewhat guarded secondary to pain, [antalgic gait noted] Neurological: Speech clear, no gross sensory deficit Assessment:: Degenerative disc disease of lumbar spine with lumbar radiculopathy symptoms, left shoulder pain, bilateral wrist pain, mid back pain Plan:: Patient continues to experience significant pain in her left shoulder with limited range of motion. I have discussed with the patient that she may benefit from repeat intra-articular injection or even a suprascapular nerve block. Risk and benefits of both of these injections were explained to the patient and she would like to proceed forward with the suprascapular nerve block. Patient is not on any blood thinners. I have also discussed with the patient that she may benefit from trying meloxicam however at this time she would like to wait. We will schedule her for a left suprascapular nerve block. Patient has been instructed to contact the clinic with any concerns before the next appointment. Dr. Beauchamp has reviewed this note and agrees with this plan of care. This note was dictated using voice recognition software and make contain errors or omissions. [facility] Disclaimer: The information contained in this section may have been updated after the patient was seen, as this information can be updated
[2022-11-26 14:58] VITALS: BP 123/67; PULSE 86; RESP 20; BMI 58.5
== END ==
PROVIDERS: PCP Physician Assistant; Visit Provider Nurse Practitioner Family
DX: M51.16 Intervertebral disc disorders with radiculopathy, lumbar region (principal); M25.512 Pain in left shoulder; M25.531 Pain in right wrist; M25.532 Pain in left wrist; M54.6 Pain in thoracic spine
CPT/HCPCS: 99212; G0463

== ENCOUNTER → 2022-12-06 08:20 | Outpatient (CLI) | payer BC, SELFPAY ==
[2022-12-06 09:47] LABS: Hemoglobin A1C 8.9 % (4.0-6.0)
[2022-12-06 10:27] LABS: Chol/HDL Ratio 6.2 (1-3.5); Cholesterol 186 mg/dl (140-200); HDL Cholesterol 30 mg/dl (40-60); Triglycerides 163 mg/dl (30-150); VLDL Cholesterol 33 mg/dL (0-40)
[2022-12-06 10:37] LABS: Direct LDL Cholesterol 116.41 mg/dL (100-129)
== END ==
PROVIDERS: PCP Nurse Practitioner Family; Visit Provider Nurse Practitioner Family
DX: E11.9 Type 2 diabetes mellitus without complications (principal); I10 Essential (primary) hypertension; Z79.4 Long term (current) use of insulin
CPT/HCPCS: 36415; 80061; 83036

== ENCOUNTER → 2022-12-09 08:04 | Outpatient (CLI) | payer BC, SELFPAY ==
[2022-12-09 08:10] LABS: Microscopic, Urine URINE MICROSCOPIC (MICROSCOPIC)
[2022-12-09 08:39] LABS: Appearance,Urine CLEAR (Clear); Bilirubin,Urine Negative (Negative); Blood, Urine Negative (Negative); Color,Urine YELLOW (Yellow); Glucose,Urine (UA) Negative (Negative); Ketones,Urine Negative (Negative); Leukocyte Esterase,Urine Negative (Negative); Nitrate,Urine Negative (Negative); Protein,Urine Negative (Negative)
== END ==
PROVIDERS: PCP Nurse Practitioner Family; Visit Provider Nurse Practitioner Family
DX: R82.90 Unspecified abnormal findings in urine (principal)
CPT/HCPCS: 81001; 87086

== ENCOUNTER 2022-12-09 11:39 | Day surgery (SDC) | payer BC, SELFPAY ==
[2022-12-09 11:54] VITALS: BP 141/70; PULSE 97; RESP 18; TEMP 36.8; O2SAT 96; BMI 60.3
[2022-12-09 12:11] VITALS: BP 125/77; PULSE 87; RESP 18
[2022-12-09 12:16] VITALS: BP 146/68; PULSE 94; RESP 18; O2SAT 96
--- NOTE | 2022-12-09 12:17 | P.PCN_ITS ---
Procedure Date: 12/09/22 Time: 12:10 Anesthesiologist:: Sujit Lea CRNA Complications:: None Pre-procedure Diagnosis:: Chronic left shoulder pain. Osteoarthritis left shoulder. Post-procedure Diagnosis:: Same. Indications for Procedure:: Patient is a very pleasant 47-year-old female comes our clinic for left suprascapular nerve block. Patient had left intra-articular shoulder injection on 11/11/2022. She reports 2 to 3 days of relief after injection. She describes her left shoulder pain as constant, dull, aching. She rates the pain 5/10. Procedure Details:: Details of procedure explained to the patient. Patient taken to procedure room placed in sitting position. The area over the left scapula was cleaned using chlorhexidine as a cleansing solution. Using a 25-gauge inch and half needle 10 cc of a solution containing 0.25% Marcaine +1% lidocaine and 40 mg of Depo- Medrol was injected along the superior border of the left lateral scapula. Patient tolerated procedure without difficulty. No complications. Plan and Disposition:: Patient was discharged without incident.
== END 2022-12-09 12:16 | disposition home or self-care (01) ==
PROVIDERS: PCP Nurse Practitioner Family; Visit Provider Nurse Anesthetist, Certified Registered
DX: M19.012 Primary osteoarthritis, left shoulder (principal); M25.512 Pain in left shoulder; G89.29 Other chronic pain
CPT/HCPCS: 64418; J1040

== ENCOUNTER → 2022-12-24 08:26 | Outpatient (POV) | payer BC, SELFPAY ==
[2022-12-24 08:37] VITALS: BP 143/74; PULSE 98; RESP 18; O2SAT 95; BMI 60.3
--- NOTE | 2022-12-24 08:38 | EXP.PAIN.SOA ---
[facility] Pain Management SOAP Note Subjective:: Patient is a pleasant 47-year-old female who presents today for a follow-up of left suprascapular nerve block on 12/09/2022. We are currently treating the patient for degenerative disc disease of lumbar spine with lumbar radiculopathy symptoms, left shoulder pain, bilateral wrist pain, mid back pain. Today she rates her pain a 2 out of 10. Patient denies any new trauma or injury. She denies any change to location or type of pain she experiences. She does state that she has had at least 75% improvement following her injection and feels like it is still continuing to provide additional relief. Patient states she has been able to increase her activity with decreased pain symptoms and feels overall more functional. Patient is prescribed compounding cream. Her Jones is [id number]. Its been reviewed and appropriate. Review of Systems: General: No recent weight changes, no fever, no sleep disturbances Respiratory: No cough, no shortness of air, no recurring pulmonary infections Cardiovascular/peripheral vascular: No chest pain, no palpitations, no edema, no shortness of breath Gastrointestinal: No new onset incontinence, normal bowel movements reported Genitourinary: No new onset incontinence Musculoskeletal: Left shoulder pain Psychiatric: [Normal mood/affect] Neurological: [Denies weakness in extremities], [denies balance issues] Objective:: Physical Exam: General: Alert and oriented x3, no acute distress, pleasant and cooperative Lungs: Respirations even and unlabored, symmetrical chest expansion Eyes: PERRL Musculoskeletal: Flexion and extension of left shoulder somewhat guarded secondary to pain, [antalgic gait noted] Neurological: Speech clear, no gross sensory deficit Assessment:: Degenerative disc disease of lumbar spine with lumbar radiculopathy symptoms, left shoulder pain, bilateral wrist pain, mid back pain Plan:: Patient has had significant improvement following her suprascapular nerve block and does not require any additional injective therapy at this time. Patient will return to clinic in 1 month for reevaluation of symptoms and plan of care. Patient has been instructed to contact the clinic with any concerns before the next appointment. Dr. Beauchamp has reviewed this note and agrees with this plan of care. This note was dictated using voice recognition software and make contain errors or omissions. [facility] Disclaimer: The information contained in this section may have been updated after the patient was seen, as this information can be updated by other users. Medical History Abscess of skin or subcutaneous tissue Cellulitis Diabetes mellitus, type 2 Edema of left ankle Exposure to COVID-19 virus Gastroenteritis Influenza A Mammogram normal 2021 Nausea vomiting and diarrhea Otitis externa Otitis media Pain in left ankle Pain in left foot Pain in right foot Pain, dental Pharyngitis Plantar wart of right foot Rib fracture Sinusitis Surgical History H/O: hysterectomy History of section S/P hernia repair Family History Mother Diabetes Hypertension Hyperlipidemia Father Diabetes Cancer leukemia Social History Smoking Status: Never smoker alcohol intake: never current occupational status: other Travel in the last 8 weeks: None number of children: 2 current occupational exposures/hazards: No
== END ==
PROVIDERS: Visit Provider Nurse Practitioner Family
DX: M51.16 Intervertebral disc disorders with radiculopathy, lumbar region (principal); M25.512 Pain in left shoulder; M25.532 Pain in left wrist; M25.531 Pain in right wrist; M54.6 Pain in thoracic spine
CPT/HCPCS: 99212; G0463

== ENCOUNTER → 2022-12-31 08:28 | Outpatient (CLI) | payer BC, SELFPAY | PROVIDERS: PCP Nurse Practitioner Family; Visit Provider Surgery | DX: K43.9 Ventral hernia without obstruction or gangrene (principal) ==

== ENCOUNTER → 2023-02-02 08:12 | Outpatient (POV) | payer BC, SELFPAY ==
[2023-02-02 08:44] VITALS: BP 150/82; PULSE 106; RESP 18; O2SAT 93; BMI 59.1
--- NOTE | 2023-02-02 08:53 | EXP.PAIN.SOA ---
[facility] Pain Management SOAP Note Subjective:: Patient is a pleasant 47-year-old female who presents today for follow-up. We are currently treating the patient for degenerative disc disease of lumbar spine with lumbar radiculopathy symptoms, left shoulder pain, bilateral wrist pain, mid back pain. Today she rates her pain a 3 out of 10. Patient states that she has not had any new trauma or injury. She does state that she continues to have significant low back pain that radiates into her bilateral hips. Patient does describe this as a aching, throbbing sensation that is worse with increased activity. She states that she cannot tolerate prolonged sitting or standing due to the pain. Patient states the pain does interfere with her ability perform activities of daily living such as cooking and cleaning. She does state that she has continued to get significant relief in her left shoulder from her suprascapular nerve block that was done in November. Patient is currently managed with compounding cream. Her Jones is [id number]. Its been reviewed and appropriate. Review of Systems: General: No recent weight changes, no fever, no sleep disturbances Respiratory: No cough, no shortness of air, no recurring pulmonary infections Cardiovascular/peripheral vascular: No chest pain, no palpitations, no edema, no shortness of breath Gastrointestinal: No new onset incontinence, normal bowel movements reported Genitourinary: No new onset incontinence Musculoskeletal: Low back pain, bilateral hip pain Psychiatric: [Normal mood/affect] Neurological: [Denies weakness in extremities], [denies balance issues] Objective:: Physical Exam: General: Alert and oriented x3, no acute distress, pleasant and cooperative Lungs: Respirations even and unlabored, symmetrical chest expansion Eyes: PERRL Musculoskeletal: Flexion and extension of lumbar [spine] somewhat guarded secondary to pain, [antalgic gait noted] extreme point tenderness along bilateral SIs with positive bilateral Justin's, Mary's, Gaenslen's, compression and distraction exam Neurological: Speech clear, no gross sensory deficit Assessment:: Degenerative disc disease of lumbar spine with lumbar radiculopathy symptoms, sacroiliitis, left shoulder pain, bilateral wrist pain, mid back pain Plan:: Patient is experiencing significant pain in her low back with radiating symptoms along her bilateral hips. Patient had limited range of motion of her lumbar spine along with extreme point tenderness at her bilateral SIs with positive bilateral Justin's, Mary's, Gaenslen's, compression and distraction exam. I have discussed with the patient that she may benefit from diagnostic SI injections. Risk and benefits were explained to the patient and she would like to proceed forward with this plan of care. Patient will be scheduled for bilateral SI injections. Patient has been instructed to contact the clinic with any concerns before the next appointment. Dr. Beauchamp has reviewed this note and agrees with this plan of care. This note was dictated using voice recognition software and make contain errors or omissions. [facility] Disclaimer: The information contained in this section may have been updated after the patient was seen, as this information can be updated by other users. Medical History Abdominal pain Abnormal urine odor Abscess of skin or subcutaneous tissue Cellulitis Diabetes mellitus, type 2 Edema of left ankle Exposure to COVID-19 virus Gastroenteritis Influenza A Left shoulder pain Mammogram normal 2021 Nausea vomiting and diarrhea Otitis externa Otitis media Pain in left ankle Pain in left foot Pain in right foot Pain, dental Pharyngitis Plantar wart of right foot Rib fracture Sinusitis Vaginal yeast infection Surgical History H/O: hysterectomy History of section S/P hernia repair Family History
== END ==
PROVIDERS: PCP Internal Medicine; Visit Provider Nurse Practitioner Family
DX: M51.16 Intervertebral disc disorders with radiculopathy, lumbar region (principal); M46.1 Sacroiliitis, not elsewhere classified; M25.512 Pain in left shoulder; M25.531 Pain in right wrist; M25.532 Pain in left wrist; M54.6 Pain in thoracic spine
CPT/HCPCS: 99212; G0463

== ENCOUNTER → 2023-03-14 08:21 | Outpatient (CLI) | payer BC, SELFPAY ==
--- OUTSIDE RECORDS SUMMARY | 2023-03-14 08:25 | XMS_ITS | Patient Health Record ---
Author Name Unknown Organization [facility] Address [address] [place] [facility] [address] [place] [address] Care Team Providers Care It Program Auditor Name Role Phone Zohaib Teixeira Primary Care Provider [phone] Zohaib Teixeira Unavailable Unavailable Patty Valles Unavailable [phone] ALLERGIES Allergen (clinical drug ingredient) Drug/Non Drug Allergy documented on EMR Reaction Allergy Type Onset Date Status Lipitor muscle cramps Drug Allergy Act shanique sulfamethoxazole / trimethoprim Bactrim rash Drug Allergy Active MEDICATIONS Medication SIG (Take, Route, Frequency, Duration) Notes Start Date End Date Status Ozempic 4 mg/3 mL as directed subcutan eously once a week Active Basaglar KwikPen 100 units/mL 70 units subcutaneously 2 times daily Active colesevelam 625 mg 3 tab(s) orally 2 ti mes a day Active NovoLIN R human recombinant 100 units/mL 40 units subcutaneously 2 times daily Active NovoLIN R FlexPen human recombinant 100 units/mL 40 units subcutaneously with supper daily for 30 days 11/03/2022 Active nystatin 939832 units/mL 4 mL orally 4 t imes a day for 10
[2023-03-14 08:26] LABS: Microscopic, Urine URINE MICROSCOPIC (MICROSCOPIC)
[2023-03-14 08:41] LABS: Basophils # 0.1 K/mm3 (0-0.2); Basophils % 0.7 % (0.1-2.0); Eosinophils # 0.2 K/mm3 (0.0-0.4); Eosinophils % 2.2 % (0.1-12.0); Hematocrit 47.3 % (37.0-47.0); Hemoglobin 15.4 g/dL (12.2-16.2); Lymphocytes # 1.6 K/mm3 (0.7-4.5); Lymphocytes % 22.6 % (10-50); Mean Corpuscular HGB Conc 32.6 g/dL (31.8-35.4); Mean Corpuscular Hemoglobin 29.7 pg (27.0-31.2); Mean Corpuscular Volume 90.9 fl (81-99); Mean Platelet Volume 7.7 fl (7.4-10.4); Monocytes # 0.4 K/mm3 (0.1-1.0); Monocytes % 6.3 % (1.7-9.3); Neutrophils # 4.8 K/mm3 (1.8-7.8); Neutrophils % 68.2 % (37.0-80.0); Platelet Count 250 K/mm3 (142-424); Red Cell Distribution Width 13.9 % (11.5-17.5); White Blood Count 7.1 K/mm3 (4.8-10.8)
[2023-03-14 08:46] LABS: Appearance,Urine SL CLOUDY (Clear); Blood, Urine Negative (Negative); Color,Urine YELLOW (Yellow); Glucose,Urine (UA) Negative (Negative); Ketones,Urine TRACE (Negative); Leukocyte Esterase,Urine Negative (Negative); Nitrate,Urine Negative (Negative); PH,Urine 6.5 (5.0-8.5); Protein,Urine Negative (Negative); Specific Gravity, Urine 1.025 (1.005-1.030)
[2023-03-14 08:50] LABS: Bilirubin,Urine 1+ (Negative)
[2023-03-14 08:51] LABS: Creatinine,Urine Random 189 mg/dL (Not Estab.)
[2023-03-14 08:55] LABS: Bacteria,Urine 1+ /lpf; WBC,Urine Occasional #/hpf (0-3)
[2023-03-14 09:41] LABS: Alanine Aminotransferase 45 U/L (12-78); Albumin Level 3.9 g/dl (3.5-5.0); Albumin/Globulin Ratio 1.2 (1.1-1.8); Alkaline Phosphatase 73 U/L (38-126); Anion Gap 13.1 mEq/L (5-15); Aspartate Amino Transferase 43 U/L (14-36); Bilirubin,Total 0.4 mg/dl (0.2-1.3); Blood Urea Nitrogen 9 mg/dl (7-17); Calcium 9.1 mg/dl (8.4-10.2); Carbon Dioxide 28 mmol/L (22.0-30.0); Chloride 100 mmol/L (98-107); Estimated Glomerular Filt Rate 131 ml/min (>60); GFR (African American) 159 ML/MIN (>60); Globulin 3.3 g/dL (1.3-3.2); Glucose 245 mg/dl (74-100); Potassium 4.1 mmoL/L (3.5-5.1); Sodium 137 mmol/L (136-145); Total Protein,Serum 7.2 g/dl (6.3-8.2)
[2023-03-14 09:57] LABS: Free T4 (Free Thyroxine) 1.27 ng/dl (0.78-2.19)
[2023-03-14 09:59] LABS: 25-OH Vitamin D, Total 22.3 ng/mL (30-100)
[2023-03-14 10:11] LABS: Thyroid Stimulating Hormone 0.86 uIU/mL (0.465-4.68)
[2023-03-14 10:30] LABS: Vitamin B12 317 pg/mL (239-931)
== END ==
PROVIDERS: PCP Internal Medicine; Visit Provider Nurse Practitioner Family
DX: R73.9 Hyperglycemia, unspecified (principal); E55.9 Vitamin D deficiency, unspecified; Z13.21 Encounter for screening for nutritional disorder; Z13.29 Encounter for screening for other suspected endocrine disorder; Z13.1 Encounter for screening for diabetes mellitus; Z79.899 Other long term (current) drug therapy
CPT/HCPCS: 36415; 80053; 81001; 82043; 82306; 82570; 82607; 84439; 84443; 85025

== ENCOUNTER 2023-03-17 13:46 | Day surgery (SDC) | payer BC, SELFPAY ==
[2023-03-17 13:52] VITALS: BP 147/71; PULSE 99; RESP 18; TEMP 36.6; O2SAT 97; BMI 58.5
--- NOTE | 2023-03-17 14:00 | PC.NURSE ---
BS 152 per bincom
[2023-03-17 14:08] VITALS: BP 135/66; PULSE 98; RESP 18; O2SAT 97
--- NOTE | 2023-03-17 14:08 | P.PCN_ITS ---
Procedure Date: 03/17/23 Time: 14:00 Anesthesiologist:: Sujit Lea CRNA Complications:: None Pre-procedure Diagnosis:: Bilateral sacroiliitis. Post-procedure Diagnosis:: Same. Indications for Procedure:: Patient is a very pleasant 47-year-old female that comes our clinic today for bilateral sacroiliac joint injection. Patient has difficulty with ambulating and or standing for any length of time secondary to low lumbar back pain bilaterally. Patient also reports difficulty with ambulation due to pain. Patient has extreme point tenderness over the bilateral sacroiliac joints. Procedure Details:: Procedure: Bilateral sacroiliac joint injections under fluoroscopy Informed consent was obtained and the risks and benefits of the procedure were explained to the patient.~ The patient was taken to the procedure room and noninvasive monitors were placed including a noninvasive blood pressure cuff and pulse oximeter.~ The patient was placed prone on the procedure table. Both hips were cleansed using Betadine as a cleansing solution. C-arm fluoroscopy was used to view the right sacroiliac joint.~ The skin and subcutaneous tissues were anesthetized using lidocaine 1.5% and a 25-gauge needle.~ After this, a 22-gauge spinal needle was inserted under fluoroscopic guidance into the inferior aspect of the right sacroiliac joint.~ Omnipaque dye was injected and good spread was seen throughout the joint.~ After this, approximately 5 mL of bupivacaine, 0.25% and Depo-Medrol, 40 mg was incrementally injected into the right sacroiliac joint. We then moved to the left sacroiliac joint.~ The skin and subcutaneous tissues were anesthetized using lidocaine 1.5% and a 25-gauge needle.~ After this, a 22- gauge spinal needle was inserted under fluoroscopic guidance into the inferior aspect of the left sacroiliac joint.~ Omnipaque dye was injected and good spread was seen throughout the joint. After this, approximately 5 mL of bupivacaine, 0.25% and Depo-Medrol, 40 mg was incrementally injected into the left sacroiliac joint.~ The patient tolerated the procedure well with no complications. The patient was observed in the Pain Clinic and then was discharged home neurologically intact. Plan and Disposition:: Patient was discharged without incident.
== END 2023-03-17 14:08 | disposition home or self-care (01) ==
PROVIDERS: PCP Internal Medicine; Visit Provider Nurse Anesthetist, Certified Registered
DX: M46.1 Sacroiliitis, not elsewhere classified (principal)
CPT/HCPCS: 27096; G0260; J1040

== ENCOUNTER → 2023-04-22 14:06 | Outpatient (CLI) | payer BC, SELFPAY | PROVIDERS: PCP Internal Medicine; Visit Provider Internal Medicine | DX: R35.0 Frequency of micturition (principal); B96.89 Other specified bacterial agents as the cause of diseases classified elsewhere | CPT/HCPCS: 87086 ==

== ENCOUNTER → 2023-05-06 08:13 | Outpatient (POV) | payer BC, SELFPAY ==
--- OUTSIDE RECORDS SUMMARY | 2023-05-06 08:16 | XMS_ITS | Patient Health Record ---
Author Name Unknown Organization [facility] Address [address] [place] [facility] [address] [place] [address] Care Team Providers Care Extrusion Die Corrector Name Role Phone Zohaib Teixeira Primary Care Provider Zohaib Teixeira Unavailable Unavailable Patty Valles Unavailable [phone] ALLERGIES Allergen (clinical drug ingredient) Drug/Non Drug [...] daily for 30 days 11/03/2022 Active nystatin 388733 units/mL 4 mL orally 4 t imes a day for 10
--- NOTE | 2023-05-06 08:38 | EXP.PAIN.SOA ---
[facility] Pain Management SOAP Note Subjective:: Patient is a pleasant 47-year-old female who presents today for follow-up. We are currently treating the patient for degenerative disc disease of lumbar spine with lumbar radiculopathy symptoms, left shoulder pain, bilateral wrist pain, mid back pain, sacroiliitis. Today she rates her pain a 7 out of 10. She states her pain is all in her left shoulder as well as her bilateral wrist due to carpal tunnel. Patient states that she did go to Dr. Ibarra who stated it was more mild however patient does state today that she does not agree with this finding. Patient states that the numbness and tingling interferes with her daily life and that she does find that it interrupts her activities of daily living. Patient was previously seen Dr. Soto who did think it was more extensive and had done some injections. Patient states after he left and went to [place] she has not seen anyone for her carpal tunnel. Patient is requesting if we can send her somewhere to be evaluated for this. Patient is requesting outside of care [facility]. Patient is currently managed with compounded cream. Patient has had a left suprascapular nerve block in the past that did provide significant relief. Her Jones has been reviewed and is appropriate. Review of Systems: General: No recent weight changes, no fever, no sleep disturbances Respiratory: No cough, no shortness of air, no recurring pulmonary infections Cardiovascular/peripheral vascular: No chest pain, no palpitations, no edema, no shortness of breath Gastrointestinal: No new onset incontinence, normal bowel movements reported Genitourinary: No new onset incontinence Musculoskeletal: Lateral wrist numbness tingling, left shoulder pain Psychiatric: [Normal mood/affect] Neurological: [Denies weakness in extremities], [denies balance issues] Objective:: Physical Exam: General: Alert and oriented x3, no acute distress, pleasant and cooperative Lungs: Respirations even and unlabored, symmetrical chest expansion Eyes: PERRL Musculoskeletal: Flexion and extension of left shoulder somewhat guarded secondary to pain, [antalgic gait noted] Neurological: Speech clear, no gross sensory deficit Assessment:: Degenerative disc disease of lumbar spine with lumbar radiculopathy symptoms, right shoulder pain, bilateral wrist pain, mid back pain, sacroiliitis Plan:: Patient continues to experience significant issues with her carpal tunnel in her bilateral wrist as well as her left shoulder. I have discussed with the patient that she may benefit from repeat suprascapular nerve block however at this time she would like to wait and go to the orthopedic doctor for evaluation of her carpal tunnel. We will send her to Daniel Pacheco at [place] evaluation and treatment of her carpal tunnel. Patient will return to clinic to for reevaluation of symptoms and plan of care. Patient has been instructed to contact the clinic with any concerns before the next appointment. Dr. Beauchamp has reviewed this note and agrees with this plan of care. This note was dictated using voice recognition software and make contain errors or omissions. [facility] Disclaimer: The information contained in this section may have been updated after the patient was seen, as this information can be updated by other users. Medical History (Updated 04/22/23 @ 11:12 by Tex Staples DO) Abdominal pain Abnormal urine odor Abscess of skin or subcutaneous tissue Cellulitis Chronic eustachian tube dysfunction Diabetes mellitus, type 2 Edema of left ankle Exposure to COVID-19 virus Gastroenteritis Influenza A Left shoulder pain Mammogram normal Nausea vomiting and diarrhea Otic barotrauma Otitis externa Otitis media Pain in left ankle Pain in left foot Pain in right foot Pain, dental Pharyngitis Plantar wart of right foot Rib fracture Sinusitis Vaginal yeast infection Surgical History (Reviewed 04/22/23 @ 09:10 by Jeannette Thomson
[2023-05-06 09:39] VITALS: BP 168/77; PULSE 81; RESP 18; O2SAT 96; BMI 59.4
== END ==
PROVIDERS: PCP Internal Medicine; Visit Provider Nurse Practitioner Family
DX: M51.16 Intervertebral disc disorders with radiculopathy, lumbar region (principal); M25.511 Pain in right shoulder; M25.531 Pain in right wrist; M25.532 Pain in left wrist; M46.1 Sacroiliitis, not elsewhere classified
CPT/HCPCS: 99212; G0463

== ENCOUNTER → 2023-05-13 09:16 | Outpatient (POV) | payer BC, SELFPAY ==
--- OUTSIDE RECORDS SUMMARY | 2023-05-13 09:21 | XMS_ITS | Patient Health Record ---
Author Name Unknown Organization [facility] Address [address] [facility] [address] [facility] [address] [place] [address] Care Team Providers Care Steam Boiler Fireman Name Role Phone Zohaib Teixeira Primary Care Provider Zohaib Teixeira Unavailable Unavailable Patty Valles Unavailable [phone] ALLERGIES Allergen (clinical drug ingredient) Drug/Non Drug [...] daily for 30 days 11/03/2022 Active nystatin 027389 units/mL 4 mL orally 4 t imes a day for 10 days 11/03/2022 Active NovoLIN 70/30 human recombinant 70 units-30 units/mL 40 units subcutaneously with breakfast daily for 30 days 11/03/2022 Active Lantus Solostar Pen 100 units/mL 70 units subcutaneously at bedtime for 30 days 11/03/2022 Active Ozempic 2 mg/3 mL (0.25 mg or 0.5 mg dose) 0.25mg subcutaneously once a week for 30 days 11/07/2022 Active IMMUNIZATIONS Vaccine Route Administration Date Status Comme nts Fluvirin--Influenza vaccine 3+ year IM Intramuscular 03/05/2007 Administered SOCIAL HISTORY Tobacco Use: Social History Observation Description Date Details (start date - stop date) Never Smoker NA - NA Sex Assigned At : Social History Observation Description Sex Assigned At Unknown Smoking: Question Answer Notes Are you a: nonsmoker PROBLEMS Problem Type ICD Code Onset Dates Problem Status W/U Status Risk SNOMED Code Notes Problem Type 2 diabetes mellitus without complications (E11.9) Active confirmed 934964427 Problem buttermaker helper (current) use of insulin (Z79.4) Active confirmed 410923128 VITAL SIGNS Heart Rate 80 /min 11/03/2022 Temperature 98.0 degrees Fahrenheit 11/03/2022 Blood pressure diastolic 80 mm Hg 11/03/2022 Height 5ft 2in in 11/03/2022 Blood pressure systolic 118 mm Hg 11/03/2022 Weight 330 lbs 11/03/2022 BMI 60.35 kg/m2 11/03/2022 Encounters Encounter Location Date Provider Diagnosis [facility] [address] [facility] [address] [place] [address] 11/17/2022 Patty Valles [facility] [address] [facility] [address] [place] [address] 12/31/2022 Patty Valles [facility] [address] [facility] [address] [place] [address] 11/03/2022 Patty Valles Type 2 diabetes mellitus without complications E11.9 ; buttermaker helper (current) use of insulin Z79.4 ; Ventral hernia without obstruction or gangrene K43.9 ; Routine adult health maintenance Z00.00 and Oral thrush B37.0 [facility] [address] [place] [address] 11/04/2022 Zohaib Besson [facility] [address] [place] [address] 11/06/2022 Zohaib Besson [facility] [address] [facility] [address] [place] [address] 11/07/2022 Zohaib Teixeira Type 2 diabetes mellitus without complications E11.9 [facility] [address] [place] [address] 11/12/2022 Zohaib Teixeira ASSESSMENTS Encounter Date Diagnosis Assessment Notes Treatment Notes Treatment Clinical Notes 11/07/2022 Type 2 diabetes mellitus without complications (ICD-10 - E11.9) 11/03/2022 Type 2 diabetes mellitus without complications (ICD-10 - E11.9) Glargine, 70 u at bedtimeInsulin regular, 40 u with supperNovolin 70/30, 40 u breakfast Mounjaro 2.5 once weekly, in 8 weeks we will dial up to 5 at 8 week follow-up. Patient clearly with uncontrolled diabetes due to noncompliance with medication and diet. Treat thrush as below. Encourage patient to keep a log of her glucose readings and reviewed for follow-up appointment. We will check routine labs at follow-up appointment in 8 weeks. Insulin regimen discussed with attending Dr. Teixeira extensively who agrees with the plan of care above. 11/03/2022 buttermaker helper (current) use of insulin (ICD-10 - Z79.4) 11/03/2022 Ventral hernia without obstruction or gangrene (ICD-10 - K43.9) Hernia easily reduced. Will refer to surgery at patient's request. Discussed she is not currently a surgical candidate with her uncontrolled diabetes. She voices understanding. 11/03/2022 Routine adult health maintenance (ICD-10 - Z00.00) Colonoscopy referral made for routine screening. 11/03/2022 Oral thrush (ICD-10 - B37.0) sent Nystatin as above. follow-up PRN. PLAN OF TREATMENT Pending Test Test Name Order Date MRI : Lumbosacral Spine 09/25/2008 Insurance Providers Payer Name Payer Address Payer Phone Subscriber Number Group Number Insured Name Patient Relationship to Insured Coverage Start Date Coverage End Date [facility] [employer] BLUE [facility] [address] [place] [address] [id number] Fina Lawton Self - patient is the insured [facility] MEDICAID [address] [address] [place] [address] [id number] Fina Lawton Self - patient is the insured MEDICAL (GENERAL) HISTORY Medical History History ICD Code IDDM congenital hyperplastic endometrium hyperlipidemia type II diabetes anxiety carpal tunnel Surgical History Surgery Date(Month/Year) hernia repair 2004 D&C 2004 C section Hospitalization History Reason Date(Month/Year) [place], flesh eating bacteria nec fasc? 20 21
== END ==
PROVIDERS: Visit Provider Specialist/Technologist
DX: Z00.00 Encounter for general adult medical examination without abnormal findings (principal)

== ENCOUNTER → 2023-05-20 16:11 | Outpatient (POV) | payer BC, SELFPAY ==
--- OUTSIDE RECORDS SUMMARY | 2023-05-20 16:12 | XMS_ITS ---
Author Name Unknown Address [address] [place] [address] [place] [address] Phone Organization [facility] Address [address] [place] [address] Phone Care Team Providers Care Drafter Cartographic Name Role Phone Gonazlo REID, Nehemiah Banegas Unavailable + [phone] Plan of Treatment No Plan of Treatment Recorded Assessments Includes: Assessments for all patient encounters No Assessments Recorded Medical Equipment - Implanted Devices Includes: Current and historical Devices No Medical Equipment Recorded Medications Administered Includes: Administered Medications in patient's chart No Administered Medications Recorded Results Includes: Results from 05/20/2022 through 05/20/2023 No Results Recorded For Specified Dates History of Present Illness History of Present Illness not supported for this document type No History of Present Illness Recorded Social History No Social History Recorded - Smoking Status Unknown Medical History Includes: Medical History in patient's chart No Medical History Recorded Family History Includes: Family History in patient's chart No Family History Recorded Review of Systems Review of Systems not supported for this document type No Review of Systems Recorded Mental Status No Mental Status Recorded Functional Status No Functional Status Recorded Physical Exam Physical Exam not supported for this document type No Physical Exam Recorded Insurance Includes: Active Insurance Policies Plan Name Member ID Group # Subscriber Relationship Effect shanique Dates 1 - [facility] [id number] Fina Lawton Trena f Clinical Notes Includes: Signed Clinical Notes starting from 05/08/2022 No Clinical Notes Recorded
--- OUTSIDE RECORDS SUMMARY | 2023-05-20 16:12 | XMS_ITS ---
Care Plan - [facility] Created on: May 20, 2023 Fina Lawotn : 1975 Sex: Female Author Name Unknown Address [address] [address] Phone Organization [facility] Address [address] [place] [address] Phone Care Team Providers Care Customs Broker Name Role Phone Gonzalo REID, Nehemiah Banegas Unavailable +
== END ==
PROVIDERS: PCP Internal Medicine; Visit Provider Specialist/Technologist
DX: Z00.00 Encounter for general adult medical examination without abnormal findings (principal)

== ENCOUNTER 2023-08-15 08:52 | Outpatient (CLI) | payer BC, OTHER, SELFPAY ==
[2023-08-15 09:14] LABS: Basophils # 0.1 K/mm3 (0-0.2); Basophils % 1.4 % (0.1-2.0); Eosinophils # 0.2 K/mm3 (0.0-0.4); Eosinophils % 2.4 % (0.1-12.0); Hematocrit 46.7 % (37.0-47.0); Hemoglobin 14.8 g/dL (12.2-16.2); Lymphocytes # 1.5 K/mm3 (0.7-4.5); Lymphocytes % 20.9 % (10-50); Mean Corpuscular HGB Conc 31.6 g/dL (31.8-35.4); Mean Corpuscular Hemoglobin 29.6 pg (27.0-31.2); Mean Corpuscular Volume 93.5 fl (81-99); Mean Platelet Volume 8.8 fl (7.4-10.4); Monocytes # 0.4 K/mm3 (0.1-1.0); Monocytes % 6.2 % (1.7-9.3); Neutrophils # 4.9 K/mm3 (1.8-7.8); Platelet Count 244 K/mm3 (142-424); Red Cell Distribution Width 13.5 % (11.5-17.5); White Blood Count 7.1 K/mm3 (4.8-10.8)
[2023-08-15 09:31] LABS: Microalbumin/Creatinine Ratio 7.5
[2023-08-15 09:33] LABS: Hemoglobin A1C 11.3 % (4.0-6.0)
[2023-08-15 09:34] LABS: Creatinine,Urine Random 82 mg/dL (Not Estab.)
[2023-08-15 09:40] LABS: Alanine Aminotransferase 60 U/L (12-78); Albumin Level 4.1 g/dl (3.5-5.0); Albumin/Globulin Ratio 1.4 (1.1-1.8); Alkaline Phosphatase 94 U/L (38-126); Anion Gap 10.2 mEq/L (5-15); Aspartate Amino Transferase 48 U/L (14-36); Bilirubin,Total 0.7 mg/dl (0.2-1.3); Blood Urea Nitrogen 8 mg/dl (7-17); Calcium 9.5 mg/dl (8.4-10.2); Carbon Dioxide 30 mmol/L (22.0-30.0); Chloride 100 mmol/L (98-107); Chol/HDL Ratio 9.8 (1-3.5); Cholesterol 236 mg/dl (140-200); Estimated Glomerular Filt Rate 169 ml/min (>60); GFR (African American) 204 ML/MIN (>60); Globulin 2.9 g/dL (1.3-3.2); Glucose 371 mg/dl (74-100); HDL Cholesterol 24 mg/dl (40-60); Potassium 4.2 mmoL/L (3.5-5.1); Sodium 136 mmol/L (136-145); Triglycerides 327 mg/dl (30-150); VLDL Cholesterol 65 mg/dL (0-40)
[2023-08-15 09:53] LABS: Direct LDL Cholesterol 129.92 mg/dL (100-129)
[2023-08-15 10:02] LABS: 25-OH Vitamin D, Total 31.6 ng/mL (30-100)
[2023-08-15 10:03] LABS: Free T4 (Free Thyroxine) 1.41 ng/dl (0.78-2.19)
[2023-08-15 10:44] LABS: Thyroid Stimulating Hormone 0.52 uIU/mL (0.465-4.68)
== END 2023-08-15 23:59 ==
PROVIDERS: PCP Internal Medicine; Visit Provider Internal Medicine
DX: E11.65 Type 2 diabetes mellitus with hyperglycemia (principal); E66.01 Morbid (severe) obesity due to excess calories; S31.109A Unspecified open wound of abdominal wall, unspecified quadrant without penetration into peritoneal cavity, initial encounter; R60.0 Localized edema; Z68.44 Body mass index [BMI] 60.0-69.9, adult; Z79.4 Long term (current) use of insulin; Z79.899 Other long term (current) drug therapy
CPT/HCPCS: 36415; 80053; 80061; 82043; 82306; 82570; 83036; 84439; 84443; 85025

== ENCOUNTER 2023-10-30 08:00 | Outpatient (RCR) | payer BC, OTHER, SELFPAY ==
--- NOTE | 2023-08-03 11:20 | HMH.PTOPWND ---
Rehab Outpt Wound Evaluation Rehab OP Wound Evaluation Start: 08/03/23 11:06 Freq: Status: Active Protocol: Document 08/03/23 11:06 RONAK (Rec: 08/03/23 11:20 RONAK [id number]) E-signed By Bassam Reno, PT Subjective/History History History This is the initial PT eval for Fina Lawton, 48 yowf who presents with c/o abdominal wound, present for ~ 1 yr with insidious onset, and B LE edema, L worse than R, x >20 yrs. She reports, I can just feel the infection around my wound. She has hx of DM, umbilical hernia repair, CONCEPCION, necrotizing fasciitis in her L groin. She reports pain around her abdominal wound and in B LE with walking even short distances. Subjective Subjective She reports pain 5/10 in her abdomen this am. She presents with no wound dressing in place. She has 2+ pititng edema with mildly fibrotic edema underlying in B lower legs. 2/4 TTP noted to B lower legs. Minimal erythema noted to B lower legs. New diagnosis of cancer in past 12 No months? Wound Eval Wound Abdomen Wound Type abcess Is This a Chronic Wound Yes Wound Length (cm) 1.5 Wound Width (cm) 2.0 Wound Depth (cm) 0.1 Wound Bed Appearance Beefy Red,Ajo Wound Margins Description Well Defined Surrounding Tissue Appearance Ajo,Indurated Edema Type Non-Pitting Drainage Description Serosanguineous Drainage Amount Small Drainage Odor No Odor Wound Topical Solution/Irrigant Saline Irrigant Primary Dressing Silver Dressing Comment opticell Ag Wound Secondary Dressing Type Composite Comment optifoam gentle SA Wound Debridement Method Gauze,Mechanical Dressing Change Patient Tolerance Tolerated Well Lymphedema Eval Classification of Lymphedema Secondary Lymphedema Yes Stemmer's sign Stemmer's Sign no Stage of Lymphedema Lymphedema stages Stage II (Pitting edema, increased fibrosis w/ decreased pitting) Skin Changes Dry Skin Yes Skin Folds Yes Redness Yes Discoloration of Skin Yes Other Changes Yes Pain Scale Pain Scale (0-10) 5 Affected Extremities Areas Affected by Lymphedema/Edema Abdomen,Right Lower Extremity, Left Lower Extremity Manual Lymphatic Drainage Treatment Area MLD Treatment Area Abdomen,Right Lower Extremity, Left Lower Extremity Wound Problems/Impairments Impairments Problems/Impairmments Palpation Tenderness,Impaired Endurance,Impaired Walking, Increased Edema,Lymphedema Present,Wound Care Needs, Subjective C/O Pain,Impaired Self Care/Self Management Prognosis Rehab Potential Good Clinical Impression Consistent with Diagnosis Yes Short Term Goals Number of Weeks 2 Decreased Palpation Tenderness Yes: 05/28 to B lower legs Decrease Edema Yes: 1+ pitting edema Decrease Wound Area Yes: by 25% Decrease Subjective C/O Pain Yes: 09/01 Patient to Understand Lymphedema Yes Treatment and Exercises Decrease Girth Measurments by (cm) Yes: B LE total by 5 cm ea Interior Design Professor Goals Number of Weeks 4 Decreased Palpation Tenderness Yes: 0/4 B Lower legs Decrease Lymphedema Yes: No fibrotic edema Decrease Wound Area Yes: by 75% Decrease Subjective C/O Pain Yes: 08/01 Patient to be Ind w/ HEP Yes Patient to Adhere Lymphedema Precautions Yes Decrease Girth Measurments by (cm) Yes: B LE total by 15 cm ea Outpatient Therapy Plan of Care Treatment Plan May Include Therapeutic Exercise Including Home Yes Exercise Program Manual Therapy Techniques Yes Neuromuscular Re-education Yes Therapeutic Activities to Return to Yes Previous Functional/Work Level ADL/Self Care Education Yes Orthotics/Bracing/Splinting Yes Manual Lymphatic Drainage Yes Wound Care Yes Eval/Re-Eval Yes Frequency Times per week 2 Duration Number of Weeks 4 Addendums This patient is a candidate for social No or vocational rehab? Patient/Guardian verbally acknowledges Yes understanding of treatment program and consents to further treatment? Patient/Guardian verbally acknowledges Yes understanding of diagnosis, prognosis and goals for treatment? Eval Complexity PT Charges 72451 - High Complexity PHYSICIAN CERTIFICATION: I certify the specified therapy services for Fina Lawton are required, authorized, and reviewed every 30 days.
--- NOTE | 2023-09-03 12:55 | HMH.RHREAS ---
Rehab Reassessment Rehab OP Re-assessment Start: 08/03/23 11:06 Freq: Status: Active Protocol: Document 09/03/23 12:47 [email or web address] (Rec: 09/03/23 12:54 RONAK [id number]) E-signed By Bassam Reno, PT Rehab Re-assessment Subjective Subjective Pt reports no tenderness in the luke-wound skin at this time. She feels some better overall. Her last rehab visit was 20 days ago. Objective Objective Notes Abdominal wound: L= 0.6 cm, W= 2.0 cm, D= 0.1 cm. Wound 60 % less total surface area vs IE. Edema: 1+ pitting edema to B LE without erythema present this date. Assessment Progress Assessment Progressing as Expected Assessment Notes Pt has shown overall improvement in her wound and B LE edema since IE. She has been somewhat inconsistent with attending her scheduled appointments. She continues to need skilled intervention to return to prior level of function. Patient goals met ST,2,3,4,5,6 Goals Not Met LT,2,3,4,5,6,7 Plan Plan Continue per initial POC. Pt instructed in the need to be treated regularly. Frequency of Therapy 1-2 x/wk Duration of therapy 4 wks Time and Billing Re-Eval Time 11 Re-Eval Billing Units 1 PHYSICIAN CERTIFICATION: I certify the specified therapy services for Fina Lawton are required, authorized, and reviewed every 30 days.
--- NOTE | 2023-10-13 09:02 | HMH.RHREAS ---
Rehab Reassessment Rehab OP Re-assessment Start: 08/03/23 11:06 Freq: Status: Active Protocol: Document 10/13/23 08:58 RONAK (Rec: 10/13/23 09:02 PHODIOGENES Laptop) E-signed By Bassam Reno, PT Rehab Re-assessment Subjective Subjective Pt continues to report increased pain in B LE, much worse with walking. When I walk even just a little bit, it all the way down my leg and it takes a while to go away if I sit down. Objective Objective Notes Circumferential measurements: R LE total: 176.2 cm L LE total: 177.3 cm. Abdominal wound: Abdominal wound is currently 100% epithelialized. Pain: at worst 8/10 in B LE with walking. TTP: 1/4 B lower legs. Assessment Assessment Notes Pt has shown overall improvement in her wound and B LE edema since IE. She has been somewhat inconsistent with attending her scheduled appointments. She continues to need skilled intervention to return to prior level of function. Patient goals met ST/6 LT/[address]/6 LT/7 Plan Plan Continue per initial POC. Pt instructed in the need to be treated regularly. Frequency of Therapy 1-2 x/wk Duration of therapy 4 wks Time and Billing Re-Eval Time 12 Re-Eval Billing Units 1 PHYSICIAN CERTIFICATION: I certify the specified therapy services for Fina Lawton are required, authorized, and reviewed every 30 days.
== END 2023-10-30 08:05 | disposition home or self-care (01) ==
LOC: PT 08:00
PROVIDERS: Visit Provider Internal Medicine
DX: I89.0 Lymphedema, not elsewhere classified (principal); S31.109S Unspecified open wound of abdominal wall, unspecified quadrant without penetration into peritoneal cavity, sequela
CPT/HCPCS: 97140; 97163; 97164; 97597

== ENCOUNTER 2023-11-17 15:38 | Outpatient (POV) | payer BC, OTHER, SELFPAY ==
--- OUTSIDE RECORDS SUMMARY | 2023-11-17 15:40 | XMS_ITS | Clinical Summary ---
Author Name Unknown Address [address] [place] [address] [place] [address] Phone Organization [facility] , [facility] Address [address] [place] [address] Phone Care Team Providers Care Verify Rep Name Role Phone Sherley Pacheco APRN Unavailable Unavailable Urbano MICHELE, Edgar Unavailable [phone] Reason for Visit and Chief Complaint [Patient Encounter] Problems Includes: Problems addressed during this encounter and other active Problems All Visits Onset Date Resolved Date Provider Condition S tatus Pain in Both Hands 06/03/2023 Edgar Jurado Active Last Documented On 4 9:35AM ; [facility] Plan of Treatment Future Appointments Date Time Location Provi deion Follow Up 01/28/2024 8:00AM [facility] NISHA Pacheco MD Last Documented On 4 8:39AM ; [facility], [facility] Follow Up 02/11/2024 8:00AM [facility] NISHA Pacheco MD Last Documented On 4 5:40PM ; [facility] Assessments Includes: Assessments from this encounter No Assessments Recorded Medical Equipment - Implanted Devices Includes: Current Devices No Medical Equipment Recorded Medications Includes: Medications discussed during this encounter and other current Medications Current Medications (continue as prescribed) Trulicity 1.5 MG/0.5ML Subcutaneous Solution Pen-injec tor 09/28/2023 Provider: Diagnosis: Last Documented On 4 8:10AM By Pastora Ahumada ; [facility], [facility] Lantus SoloStar 100 UNIT/ML Subcutaneous Solutio n Pen-injector 05/28/2023 Provider: Diagnosis: Last Documented On 4 9:36AM By Pastora Ahumada ; [facility] Azelastine HCl 0.1% Nasal Solution 05/20/2023 Provid er: Diagnosis: Last Documented On 4 9:36AM By Pastora Ahumada ; [facility] Levocetirizine Dihydrochloride 5 MG Oral Tablet 2022 Provider: Diagnosis: Last Documented On 4 9:36AM By Pastora Ahumada ; [facility] NovoLOG 100 UNIT/ML Injection Solution 05/15/2023 Pr ovider: Diagnosis: Last Documented On 4 9:36AM By Pastora Ahumada ; [facility] Omnipod 5 G6 Pod (Gen 5) Miscellaneous 05/15/2023 Pr ovider: Diagnosis: Last Documented On 4 9:36AM By Pastora Ahumada ; [facility], [facility] Ozempic (2 MG/DOSE) 8 MG/3ML Subcutaneous Solution Pen-injector 05/15/2023 Provider: Saundra Herron APRN Diagnosis: Last Documented On 4 9:36AM By Pastora Ahumada ; [facility], [facility] Tolterodine Tartrate ER 2 MG Oral Capsule Extended Release 24 Hour 05/15/2023 Provider: Diagnosis: Last Documented On 4 9:36AM By Pastora Ahumada ; [facility], [facility] Vitamin D3 50 MCG (1999 [place]) Oral Capsule 05/15/2023 Provider: Diagnosis: Last Documented On 4 9:36AM By Pastora Ahumada ; [facility] Dexcom G6 Sensor Miscellaneous 05/15/2023 Provider: Diagnosis: Last Documented On 4 9:36AM By Pastora Ahumada ; [facility] Cetirizine HCl 10 MG Oral Tablet 05/15/2023 Provider : Saundra Herron APRN Diagnosis: Last Documented On 4 9:36AM By Pastora Ahumada ; [facility] Dexcom G6 Transmitter Miscellaneous 05/15/2023 Provi deion: Diagnosis: Last Documented On 4 9:36AM By Pastora Ahumada ; [facility], [facility] BD Pen Needle Mini U/F 31G X 5 MM Miscellaneous 2022 Provider: Saundra Herron APRN Diagnosis: Last Documented On 4 9:36AM By Pastora Ahumada ; [facility], [facility] Rybelsus 3 MG Oral Tablet 03/18/2023 Provider: Diagnosis: Last Documented On 4 9:36AM By Pastora Ahumada ; [facility], [facility] Basaglar KwikPen 100 UNIT/ML Subcutaneous Solution Pen-injector 02/27/2023 Provider: Saundra Herron APRN Diagnosis: Last Documented On 4 9:36AM By Pastora Ahumada ; [facility] Medications Administered Includes: Administered Medications from this encounter No Administered Medications Recorded Results Includes: Results discussed during this encounter No Results Recorded For Specified Dates History of Present Illness Includes: History of Present Illness from this encounter No History of Present Illness Recorded Social History No Social History Recorded - Smoking Status Unknown Medical History Includes: Medical History addressed during this encounter No Medical History Recorded Family History Includes: Family History addressed during this encounter No Family History Recorded Review of Systems Includes: Review of Systems from this encounter No Review of Systems Recorded Mental Status Includes: Mental Status from this encounter No Mental Status Recorded Functional Status Includes: Functional Status from this encounter No Functional Status Recorded Physical Exam Includes: Physical Exam from this encounter No Physical Exam Recorded Allergies Includes: Active Allergies Substance Type Reaction Onset Date Resolved Date Statu s Statins Allergy 06/03/2023 Active Last Documented On 4 8:10AM ; [facility], [facility] Bactrim Allergy 06/03/2023 Active Last Documented On 4 8:10AM ; [facility], [facility] Encounters Encounter Provider Location Date Check-In Time Check-Out Time Diagnosis [Patient Encounter] Daniel Pacheco MD 09/11/2023 1:34PM 11:59PM Insurance Includes: Active Insurance Policies Plan Name Member ID Group # Subscriber Relationship Effect shanique Dates 1 - [facility] [id number] Fina Lawton Self 2 - [employer] [facility] [id number] Fina Lawton Self 4 - Unknown Clinical Notes Includes: Clinical Notes from this encounter No Clinical Notes Recorded
--- OUTSIDE RECORDS SUMMARY | 2023-11-17 15:40 | XMS_ITS | Clinical Summary ---
Author Name Unknown Address [address] [place] [address] [place] [address] Phone Organization [facility] , [facility] Address [address] [place] [address] Phone Care Team Providers Care Bilingual Teacher Name Role Phone Sherley Pacheco APRN Unavailable Unavailable Urbano MICHELE, Edgar Unavailable [phone] Reason for Visit and Chief Complaint [facility] Problems Includes: Problems addressed during this encounter and other active Problems All Visits Onset Date Resolved Date Provider Condition S tatus Pain in Both Hands 06/03/2023 Edgar Jurado Active Last Documented On 4 9:35AM ; [facility], [facility] Plan of Treatment Future Appointments Date Time Location Provi deion Follow Up 01/28/2024 8:00AM [facility] MINTOKAMINI Pacheco MD Last Documented On 4 8:39AM ; [facility], [facility] Follow Up 02/11/2024 8:00AM [facility] NISHA Pacheco MD Last Documented On 4 5:40PM ; [facility], [facility] Assessments Includes: Assessments from this encounter No Assessments Recorded Medical Equipment - Implanted Devices Includes: Current Devices No Medical Equipment Recorded Medications Includes: Medications discussed during this encounter and other current Medications Current Medications (continue as prescribed) Trulicity 1.5 MG/0.5ML Subcutaneous Solution Pen-injec tor 09/28/2023 Provider: Diagnosis: Last Documented On 4 8:10AM By Pastora Ahumada ; [facility], [facility] Lantus SoloStar 100 UNIT/ML Subcutaneous Solutio n Pen-injector 05/28/2023 Provider: Diagnosis: Last Documented On 4 9:36AM By Pastora Ahumada ; [facility] Azelastine HCl 0.1% Nasal Solution 05/20/2023 Provid er: Diagnosis: Last Documented On 4 9:36AM By Pastora Ahumada ; [facility] Levocetirizine Dihydrochloride 5 MG Oral Tablet 2022 Provider: Diagnosis: Last Documented On 4 9:36AM By Pastora Ahumada ; [facility] NovoLOG 100 UNIT/ML Injection Solution 05/15/2023 Pr ovider: Diagnosis: Last Documented On 4 9:36AM By Pastora Ahumada ; [facility] Omnipod 5 G6 Pod (Gen 5) Miscellaneous 05/15/2023 Pr ovider: Diagnosis: Last Documented On 4 9:36AM By Pastora Ahumada ; [facility], [facility] Ozempic (2 MG/DOSE) 8 MG/3ML Subcutaneous Solution Pen-injector 05/15/2023 Provider: Saundra Herron APRN Diagnosis: Last Documented On 4 9:36AM By Pastora Ahumada ; [facility], [facility] Tolterodine Tartrate ER 2 MG Oral Capsule Extended Release 24 Hour 05/15/2023 Provider: Diagnosis: Last Documented On 4 9:36AM By Pastora Ahumada ; [facility] Vitamin D3 50 MCG (1999 [place]) Oral Capsule 05/15/2023 Provider: Diagnosis: Last Documented On 4 9:36AM By Pastora Ahumada ; [facility] Dexcom G6 Sensor Miscellaneous 05/15/2023 Provider: Diagnosis: Last Documented On 4 9:36AM By Pastora Ahumada ; [facility] Cetirizine HCl 10 MG Oral Tablet 05/15/2023 Provider : Saundra Herron APRN Diagnosis: Last Documented On 4 9:36AM By Pastora Ahumada ; [facility] Dexcom G6 Transmitter Miscellaneous 05/15/2023 Provi deion: Diagnosis: Last Documented On 4 9:36AM By Pastora Ahumada ; [facility], [facility] BD Pen Needle Mini U/F 31G X 5 MM Miscellaneous 2022 Provider: Saundra Herron APRN Diagnosis: Last Documented On 4 9:36AM By Pastora Ahumada ; [facility], [facility] Rybelsus 3 MG Oral Tablet 03/18/2023 Provider: Diagnosis: Last Documented On 4 9:36AM By Pastora Ahumada ; [facility], [facility] Basaglar KwikPen 100 UNIT/ML Subcutaneous Solution Pen-injector 02/27/2023 Provider: Saundra Herron APRN Diagnosis: Last Documented On 4 9:36AM By Pastora Ahumada ; [facility], [facility] Medications Administered Includes: Administered Medications from this encounter No Administered Medications Recorded Results Includes: Results discussed during this encounter No Results Recorded For Specified Dates History of Present Illness Includes: History of Present Illness from this encounter No History of Present Illness Recorded Social History No Social History Recorded - Smoking Status Unknown Procedures and Surgical History Includes: Procedures from this encounter Procedures Code Diagnosis Performing Provider Service Location Service Date DECOMPRESSION MEDIAN NERVE AT CARPAL (RIGHT) 23355 Carpal tunnel syndrome, right upper limb Daniel Pacheco MD [facility] Out[facility] 08/05/2023 Last Documented On 4 11:13AM ; [facility] Medical History Includes: Medical History addressed during [...] Active Last Documented On 4 8:10AM ; [facility], [facility] Bactrim Allergy 06/03/2023 Active Last Documented On 4 8:10AM ; [facility], [facility] Encounters Encounter Provider Location Date Check-In Time Check-Out Time Diagnosis [facility] Daniel Pacheco MD Surgery 4 08/06/2023 11:09AM 11:59PM Insurance Includes: Active Insurance Policies Plan Name Member ID Group # Subscriber Relationship Effect shanique Dates 1 - [facility] [id number] Fina Lawton Self 2 - [employer] [facility] [id number] Fina Lawton Self 4 - Unknown Clinical Notes Includes: Clinical Notes from this encounter No Clinical Notes Recorded
--- OUTSIDE RECORDS SUMMARY | 2023-11-17 15:40 | XMS_ITS | Clinical Summary ---
Author Name Unknown Address [address] [place] [address] Phone Organization [facility] Address [address] [place] [address] Phone Care Team Providers Care Assistant Professor Of Mathematics Name Role Phone Sherley Pacheco APRN Unavailable Unavailable Urbano MICHELE, Edgar Unavailable [phone] Reason for Visit and Chief Complaint [Patient Encounter] Problems Includes: Problems addressed during this encounter and other active Problems All Visits Onset Date Resolved Date Provider Condition S tatus Pain in Both Hands 06/03/2023 Edgar Jurado Active Last Documented On 4 9:35AM ; [facility] Plan of Treatment Future Appointments Date Time Location Provi deion Follow Up 01/28/2024 8:00AM [facility] Daniel Pacheco MD Last Documented On 4 8:39AM ; [facility] Follow Up 02/11/2024 8:00AM [facility] NISHA Pacheco MD Last Documented On 4 5:40PM ; [facility] Assessments Includes: Assessments from this encounter No Assessments Recorded Medical Equipment - Implanted Devices Includes: Current Devices No Medical Equipment Recorded Medications Includes: Medications discussed during this encounter and other current Medications New / Renewed during this visit Daniel Pacheco MD on 08/05/2023 HYDROcodone-Acetaminophen 5- 325 MG Oral Tablet Provider: Daniel Pacheco MD 15 day supply: 30 tablet, 0 refills Diagnosis: 1 po q 4h prn pain Pharmacy: [facility] [address], [address] - Last Documented On 4 9:38AM By Daniel Pacheco ; [facility] Current Medications (continue as prescribed) Trulicity 1.5 MG/0.5ML Subcutaneous Solution Pen-injec tor 09/28/2023 Provider: Diagnosis: Last Documented On 4 8:10AM By Pastora Ahumada ; [facility] Lantus SoloStar 100 UNIT/ML Subcutaneous Solutio n Pen-injector 05/28/2023 Provider: Diagnosis: Last Documented On 4 9:36AM By Pastora Ahumada ; [facility] Azelastine HCl 0.1% Nasal Solution 05/20/2023 Provid er: Diagnosis: Last Documented On 4 9:36AM By Pastora Ahumada ; [facility] Levocetirizine Dihydrochloride 5 MG Oral Tablet 2022 Provider: Diagnosis: Last Documented On 4 9:36AM By Pastora Ahumada ; [facility] NovoLOG 100 UNIT/ML Injection Solution 05/15/2023 Pr ovider: Diagnosis: Last Documented On 4 9:36AM By Pastora Ahumada ; [facility] Omnipod 5 G6 Pod (Gen 5) Miscellaneous 05/15/2023 Pr ovider: Diagnosis: Last Documented On 4 9:36AM By Pastora Ahumada ; [facility] Ozempic (2 MG/DOSE) 8 MG/3ML Subcutaneous Solution Pen-injector 05/15/2023 Provider: Saundra Herron APRN Diagnosis: Last Documented On 4 9:36AM By Pastora Ahumada ; [facility] Tolterodine Tartrate ER 2 MG Oral Capsule Extended Release 24 Hour 05/15/2023 Provider: Diagnosis: Last Documented On 4 9:36AM By Pastora Ahumada ; [facility] Vitamin D3 50 MCG (1999 UT) Oral Capsule 05/15/2023 Provider: Diagnosis: Last Documented On 4 9:36AM By Pastora Ahumada ; [facility] Dexcom G6 Sensor Miscellaneous 05/15/2023 Provider: Diagnosis: Last Documented On 4 9:36AM By Pastora Ahumada ; [facility] Cetirizine HCl 10 MG Oral Tablet 05/15/2023 Provider : Saundra Herron APRN Diagnosis: Last Documented On 4 9:36AM By Pastroa Ahumada ; [facility] Dexcom G6 Transmitter Miscellaneous 05/15/2023 Provi deion: Diagnosis: Last Documented On 4 9:36AM By Pastora Ahumada ; [facility] BD Pen Needle Mini U/F 31G X 5 MM Miscellaneous 2022 Provider: Saundra Herron APRN Diagnosis: Last Documented On 4 9:36AM By Pastora Ahumada ; [facility] Rybelsus 3 MG Oral Tablet 03/18/2023 Provider: Diagnosis: Last Documented On 4 9:36AM By Pastora Ahumada ; [facility] Basaglar KwikPen 100 UNIT/ML Subcutaneous Solution Pen-injector 02/27/2023 Provider: Saundra Herron APRN Diagnosis: Last Documented On 4 9:36AM By Pastora Ahumada ; [facility] Medications Administered Includes: Administered Medications from this [...] Active Last Documented On 4 8:10AM ; [facility] Bactrim Allergy 06/03/2023 Active Last Documented On 4 8:10AM ; [facility] Encounters Encounter Provider Location Date Check-In Time Check-Out Time Diagnosis [Patient Encounter] Daniel Pacheco MD 08/05/2023 9:36AM 11:59PM Insurance Includes: Active Insurance Policies Plan Name Member ID Group # Subscriber Relationship Effect shanique Dates 1 - [facility] [id number] Fina Lawton Self 2 - [employer] [facility] [id number] Fina Lawton Self 4 - Unknown Clinical Notes Includes: Clinical Notes from this encounter No Clinical Notes Recorded
--- OUTSIDE RECORDS SUMMARY | 2023-11-17 15:40 | XMS_ITS | Patient Health Record ---
Author Name Unknown Organization [facility] Address [address] [facility] [facility] [address] [place] [address] Care Team Providers Care Shake Backboard Notcher Name Role Phone Zohaib Teixeira Primary Care Provider Zohaib Teixeira Unavailable Unavailable Patty Valles Unavailable [phone] ALLERGIES Allergen (clinical drug ingredient) Drug/Non Drug [...] daily for 30 days 11/03/2022 Active nystatin 343995 units/mL 4 mL orally 4 t imes [...] diabetes mellitus without complications (E11.9) Active confirmed 439379963 Problem long-term (current) use of insulin (Z79.4) Active confirmed 807580450 Encounters Encounter Location Date Provider Diagnosis [facility] [address] [place] [address] 11/17/2022 Patty Valles [facility] [address] [place] [address] 12/31/2022 Patty Valles PLAN OF TREATMENT Pending Test Test Name Order Date MRI : Lumbosacral Spine 09/25/2008 Insurance Providers Payer Name Payer Address Payer Phone Subscriber Number Group Number Insured Name Patient Relationship to Insured Coverage Start Date Coverage End Date [facility] [employer] [address] [place] [address] [id number] Fina Lawton Self - patient is the insured [employer] [address] [address] [place] [address] [id number] Fina Lawton Self - patient is the insured MEDICAL (GENERAL) HISTORY Medical History History ICD Code IDDM congenital hyperplastic endometrium hyperlipidemia type II diabetes anxiety carpal tunnel Surgical History Surgery Date(Month/Year) hernia repair 2004 D&C 2005 C section Hospitalization History Reason Date(Month/Year) [place], flesh eating bacteria nec fasc? 20 21
--- OUTSIDE RECORDS SUMMARY | 2023-11-17 15:40 | XMS_ITS | Clinical Summary ---
Author Name Unknown Address [address] [place] [address] [place] [address] Phone Organization [facility] Address [address] [place] [address] Phone Care Team Providers Care Ballistic Technician Name Role Phone Sherley Pacheco APRN Unavailable Unavailable Urbano MICHELE, Edgar Weeks [phone] Reason for Visit and Chief Complaint The Chief Complaint is: Right carpal tunnel release Problems Includes: Problems addressed during this encounter and other active Problems All Visits Onset Date Resolved Date Provider Condition S tatus Pain in Both Hands 06/03/2023 Edgar Jurado Active Last Documented On 4 9:35AM ; [facility] Plan of Treatment Patient was seen by myself and Dr. Junior Clement PA-C. Patient will follow up in the beginning a January to discuss left carpal tunnel surgery. For the right carpal tunnel she will follow up as needed - Last Documented On 10/22/2023 8:58AM ; [facility] Future Appointments Date Time Location Provi deion Follow Up 01/28/2024 8:00AM [facility] NISHA Pacheco MD Last Documented On 4 8:39AM ; [facility] Follow Up 02/11/2024 8:00AM [facility] NISHA Pacheco MD Last Documented On 4 5:40PM ; [facility] Instructions to patient Lose weight Last Documented On 4 8:11AM ; [facility] Assessments Includes: Assessments from this encounter Findings - Overweight - Last Documented On 10/22/2023 8:58AM ; [facility] Right carpal tunnel release August 05, 2023 - Last Documented On 10/22/2023 8:58AM ; [facility] Instructions Includes: Instructions from this encounter Instructions to patient Lose weight Last Documented On 4 8:11AM ; [facility] Medical Equipment - Implanted Devices Includes: Current Devices No Medical Equipment Recorded Medications Includes: Medications discussed during this encounter and other current Medications Current Medications (continue as prescribed) Trulicity 1.5 MG/0.5ML Subcutaneous Solution Pen-injec tor 09/28/2023 Provider: Diagnosis: Last Documented On 4 8:10AM By Pastora Ahumada ; [facility] Lantus SoloStar 100 UNIT/ML Subcutaneous Solutio n Pen-injector 05/28/2023 Provider: Diagnosis: Last Documented On 4 9:36AM By Pastora Ahumada ; [facility] Azelastine HCl 0.1% Nasal Solution 05/20/2023 Provid er: Diagnosis: Last Documented On 4 9:36AM By Pastora Ahumada ; [facility] Levocetirizine Dihydrochloride 5 MG Oral Tablet 2022 Provider: Diagnosis: Last Documented On 4 9:36AM By Pastora Ahumada ; [facility] NovoLOG 100 UNIT/ML Injection Solution 05/15/2023 Pr ovider: Diagnosis: Last Documented On 4 9:36AM By Pastora Ahumada ; [facility] Omnipod 5 G6 Pod (Gen 5) Miscellaneous 05/15/2023 Pr ovider: Diagnosis: Last Documented On 4 9:36AM By Pastora Ahumada ; [facility] Ozempic (2 MG/DOSE) 8 MG/3ML Subcutaneous Solution Pen-injector 05/15/2023 Provider: Saundra Herron LIMNOLOGIST Diagnosis: Last Documented On 4 9:36AM By Pastora Ahumada ; [facility] Tolterodine Tartrate ER 2 MG Oral Capsule Extended Release 24 Hour 05/15/2023 Provider: Diagnosis: Last Documented On 4 9:36AM By Pastora Ahumada ; [facility] Vitamin D3 50 MCG (1999 UT) Oral Capsule 05/15/2023 Provider: Diagnosis: Last Documented On 4 9:36AM By Pastora Ahumada ; [facility] Dexcom G6 Sensor Miscellaneous 05/15/2023 Provider: Diagnosis: Last Documented On 4 9:36AM By Pastora Ahumada ; [facility] Cetirizine HCl 10 MG Oral Tablet 05/15/2023 Provider : Saundra Herron APRN Diagnosis: Last Documented On 4 9:36AM By Pastora Ahumada ; [facility] Dexcom G6 Transmitter Miscellaneous 05/15/2023 Provi deion: Diagnosis: Last Documented On 4 9:36AM By Pastora Ahumada ; [facility] BD Pen Needle Mini U/F 31G X 5 MM Miscellaneous 2022 Provider: Saundra Herron LIMNOLOGIST Diagnosis: Last Documented On 4 9:36AM By Pastora Ahumada ; [facility] Rybelsus 3 MG Oral Tablet 03/18/2023 Provider: Diagnosis: Last Documented On 4 9:36AM By Pastora Ahumada ; [facility] Basaglar KwikPen 100 UNIT/ML Subcutaneous Solution Pen-injector 02/27/2023 Provider: Saundra Herron APRN Diagnosis: Last Documented On 4 9:36AM By Pastora Ahumada ; [facility] Past Medications on file HYDROcodone-Acetaminophen 5- 325 MG Oral Tablet 08/05/2023 - 08/20/2023 Provider: Daniel Pacheco MD Diagnosis: 1 po q 4h prn pain Last Documented On 4 9:38AM By Daniel Pacheco ; [facility] Medications Administered Includes: Administered Medications from this encounter No Administered Medications Recorded Vital Signs Includes: Vital Signs from this encounter Vital Name 10/22/2023 08:13A Height (in) 62 Weight (lb) 320 Body Mass Index 58.5 Body Surface Area 2.3 Pain Level 3 Note: lc Last Documented: On 10/22/2023 8:13AM ; [facility] Results Includes: Results discussed during this encounter No Results Recorded For Specified Dates History of Present Illness Includes: History of Present Illness from this encounter HPI Fina Lawton is a 48 year old female. - Allergy list reviewed - Problem list reviewed - Medication list reviewed - - Review of medications documented Patient is here today for follow-up of her right carpal tunnel release. Right- hand doing well no numbness and tingling little bit aching with the right hand at some point later in the fall she wants to schedule left carpal tunnel surgery Social History Description Last Updated Exercising regularly 06/03/2023 Last Documented On 4 8:10AM ; [facility] No caffeine use 06/03/2023 Last Documented On 4 8:10AM ; [facility] No recent change in diet 06/03/2023 Last Documented On 4 8:10AM ; [facility] Not a current smoker. 06/03/2023 Last Documented On 4 8:10AM ; [facility] Not using alcohol 06/03/2023 Last Documented On 4 8:10AM ; [facility] Not using drugs 06/03/2023 Last Documented On 4 8:10AM ; [facility] Tobacco non-user 06/03/2023 Last Documented On 4 8:10AM ; [facility] Smoking Status Unknown Procedures and Surgical History Includes: Procedures from this encounter Procedures Code Diagnosis Performing Provider Service L ocation Service Date use of tobacco assessment performed 1000F Last Documented On 4 8:11AM ; [facility] review of medications documented 1160F Last Documented On 4 8:11AM ; [facility] [id number] Last Documented On 4 8:11AM ; [facility] Surgical History Last Updated Past Surgical History: Right CTR 08/05/23 @ [facility] 10/22/2023 Last Documented On 4 8:58AM ; [facility] History of hernia repair 06/03/2023 Last Documented On 4 8:10AM ; [facility] History of hysterectomy 06/03/2023 Last Documented On 4 8:10AM ; [facility] Medical History Includes: Medical History addressed during this encounter Description Last Updated History of diabetes mellitus 06/03/2023 Last Documented On 4 8:10AM ; [facility] Family History Includes: Family History addressed during this encounter Description Last Updated Diabetes mellitus 06/03/2023 Last Documented On 4 8:10AM ; [facility] Family history of systemic hypertension 06/03/2023 Last Documented On 4 8:10AM ; [facility] Stroke / Seizures 06/03/2023 Last Documented On 4 8:10AM ; [facility] Review of Systems Includes: Review of Systems from this encounter Systemic: Not feeling tired, no recent weight loss, and no recent weight gain. Head: No headache and no sinus pain. Eyes: No vision problems, no Cataracts, no Glasses/Contacts, and no Glaucoma. Otolaryngeal: Hearing loss. No tinnitus. Cardiovascular: No chest pain or discomfort, no palpitations, no Hypertension, and no High Cholesterol. Pulmonary: No daytime asthma symptoms and no chronic cough. No wheezing. Gastrointestinal: No heartburn and no abdominal pain. No Indigestion, no Peptic Ulcer, no GI Stomach Bleed, no Ulcers, and no Acid Reflux. Endocrine: No hot flashes, no muscle weakness, no Diabetes, no Hypothyroid, and no Hyperthyroid. Hematologic: No easy bleeding, no tendency for easy bruising, and no Anemia. Musculoskeletal: No Arthritis and no lower back pain. No soft tissue swelling and no localized joint pain. Neurological: No dizziness, no convulsions, and no numbness. Psychological: No anxiety, no emotional lability, no depression, and no insomnia. Not crying for no reason. Skin: No dry skin. No Ulcers, no Scars, and no rash. Allergic and Immunologic: No complaint of seasonal allergic reaction. Mental Status Includes: Mental Status from this encounter Description No anxiety Functional Status Includes: Functional Status from this encounter No Functional Status Recorded Physical Exam Includes: Physical Exam from this encounter Allergies Includes: Active Allergies Substance Type Reaction Onset Date Resolved Date Statu s Statins Allergy 06/03/2023 Active Last Documented On 4 8:10AM ; [facility] Bactrim Allergy 06/03/2023 Active Last Documented On 4 8:10AM ; [facility] Encounters Encounter Provider Location Date Check-In Time Check-Out Time Diagnosis Post Op Daniel Pacheco MD [facility] 4 8:06AM 8:38AM Overweight Insurance Includes: Active Insurance Policies Plan Name Member ID Group # Subscriber Relationship Effect shanique Dates 1 - [employer] [facility] [place] [id number] Fina Lawton Self 2 - [employer] [facility] [id number] Fina Lawton Self 4 - Unknown Clinical Notes Includes: Clinical Notes from this encounter * Progress note Date Encounter Last Documented by 10/22/2023 Post Op Last documented on 10/22/2023; 8:58 AM, Daniel Pacheco MD; [facility] Active Problems & Conditions - Pain in Both Hands Chief Complaint The Chief Complaint is: Right carpal tunnel release. Referred Here Referred by Sherley Flores [facility]. History of Present Illness Fina Lawton is a 48 year old female. - Allergy list reviewed - Problem list reviewed - Medication list reviewed - - Review of medications documented Patient is here today for follow-up of her right carpal tunnel release. Right- hand doing well no numbness and tingling little bit aching with the right hand at some point later in the fall she wants to schedule left carpal tunnel surgery Current Medication - Azelastine HCl 0.1% Nasal Solution 30 days, 0 refills - Basaglar KwikPen 100 UNIT/ML Subcutaneous Solution Pen-injector 18 days, 0 refills - BD Pen Needle Mini U/F 31G X 5 MM Miscellaneous 31G X 5 MM 30 days, 0 refills - Cetirizine HCl 10 MG Oral Tablet 30 days, 0 refills - Dexcom G6 Sensor Miscellaneous 28 days, 0 refills - Dexcom G6 Transmitter Miscellaneous 90 days, 0 refills - Lantus SoloStar 100 UNIT/ML Subcutaneous Solution Pen-injector 37 days, 0 refills - Levocetirizine Dihydrochloride 5 MG Oral Tablet 30 days, 0 refills - NovoLOG 100 UNIT/ML Injection Solution 30 days, 0 refills - Omnipod 5 G6 Pod (Gen 5) Miscellaneous 30 days, 0 refills - Ozempic (2 MG/DOSE) 8 MG/3ML Subcutaneous Solution Pen-injector 28 days, 0 refills - Rybelsus 3 MG Oral Tablet 30 days, 0 refills - Tolterodine Tartrate ER 2 MG Oral Capsule Extended Release 24 Hour 30 days, 0 refills - Trulicity 1.5 MG/0.5ML Subcutaneous Solution Pen-injector 28 days, 0 refills - Vitamin D3 50 MCG (2000 UT) Oral Capsule 30 days, 0 refills Past Medical/Surgical History Diagnoses: Diabetes mellitus Surgical: - Past Surgical History: Right CTR 08/05/23 @ [facility] - Hernia repair - Hysterectomy Social History Not a current smoker. Current diet: No recent change in diet. Caffeine use: No caffeine use. Tobacco use: Tobacco non-user. Alcohol: Not using alcohol. Drug Use: Not using drugs. Habits: Exercising regularly. Allergies - Bactrim - Statins Family History Stroke / Seizures Diabetes mellitus Systemic hypertension Review Of Systems Systemic: Not feeling tired, no recent weight loss, and no recent weight gain. Head: No headache and no sinus pain. Eyes: No vision problems, no Cataracts, no Glasses/Contacts, and no Glaucoma. Otolaryngeal: Hearing loss. No tinnitus. Cardiovascular: No chest pain or discomfort, no palpitations, no Hypertension, and no High Cholesterol. Pulmonary: No daytime asthma symptoms and no chronic cough. No wheezing. Gastrointestinal: No heartburn and no abdominal pain. No Indigestion, no Peptic Ulcer, no GI Stomach Bleed, no Ulcers, and no Acid Reflux. Endocrine: No hot flashes, no muscle weakness, no Diabetes, no Hypothyroid, and no Hyperthyroid. Hematologic: No easy bleeding, no tendency for easy bruising, and no Anemia. Musculoskeletal: No Arthritis and no lower back pain. No soft tissue swelling and no localized joint pain. Neurological: No dizziness, no convulsions, and no numbness. Psychological: No anxiety, no emotional lability, no depression, and no insomnia. Not crying for no reason. Skin: No dry skin. No Ulcers, no Scars, and no rash. Allergic and Immunologic: No complaint of seasonal allergic reaction. Physical Findings - Vitals taken 10/22/2023 08:13 am lc Height 62 in Weight 320 lbs Body Mass Index 58.5 kg/m2 Body Surface Area 2.3 m2 Pain Level 3 The incision looks clean dry intact she is able to make a full fist. No evidence of any infection. She has good leave coordinator strength Tests EMG from September 2022 had showed bilateral mild carpal tunnel Assessment - Overweight Right carpal tunnel release August 05, 2023 Previous Tests Laboratory Studies: Central Auditory Function Testing: EM[facility]. Available previous imaging studies were reviewed Available previous history reviewed Counseling/Education - Tobacco non-user - Use of tobacco assessment performed - Lose weight Plan Patient was seen by myself and Dr. Junior Clement PA-C. Patient will follow up in the beginning a January to discuss left carpal tunnel surgery. For the right carpal tunnel she will follow up as needed Notes This dictation was done with voice recognition software and may contain errors and omissions. Practice Management Use of tobacco assessment performed Review of medications documented. Care Team - Sherley Pacheco APRN Health Reminders - Assess BMI satisfied 10/22/2023. - Assess Tobacco Use satisfied 06/03/2023. - Follow Up Plan BMI Management satisfied 10/22/2023.
--- OUTSIDE RECORDS SUMMARY | 2023-11-17 15:40 | XMS_ITS ---
Care Plan - [facility], [facility] Created on: November 17, 2023 Fina Lawton : 1975 Sex: Female Author Name Unknown Address [address] [place] [address] Phone Organization [facility] Address [address] [place] [address] Phone Care Team Providers Care Bunker Worker Name Role Phone Sherley Pacheco APRN Unavailable Unavailable Urbano MICHELE, Edgar Unavailable [phone]
--- OUTSIDE RECORDS SUMMARY | 2023-11-17 15:40 | XMS_ITS | Clinical Summary ---
Author Name Unknown Address [address] [place] [address] Phone Organization [facility] Address [address] [place] [address] Phone Care Team Providers Care Computer Systems Security Analyst Name Role Phone Sherley Pacheco APRN Unavailable Unavailable Urbano MICHELE, Edgar Unavailable [phone] Reason for Visit and Chief Complaint The Chief Complaint is: Right carpal tunnel release Problems Includes: Problems addressed during this encounter and other active Problems All Visits Onset Date Resolved Date Provider Condition S tatus Pain in Both Hands 06/03/2023 Edgar Jurado Active Last Documented On 4 9:35AM ; [facility], [facility] Plan of Treatment Patient was seen by myself Edgar Clement PA-C. Patient will follow up [address] Pacheco and then she consider doing the left one sometime after that. We will get her sutures out today. Make sure she has not lifting anything heavy with this right hand at this point in time - Last Documented On 08/19/2023 10:10AM ; [facility], [facility] Future Appointments Date Time Location Provi deion Follow Up 01/28/2024 8:00AM [facility] NISHA Pacheco MD Last Documented On 4 8:39AM ; [facility] Follow Up 02/11/2024 8:00AM [facility] NISHA Pacheco MD Last Documented On 4 5:40PM ; [facility] Instructions to patient Lose weight Last Documented On 4 8:38AM ; [facility] Assessments Includes: Assessments from this encounter Findings - Overweight - Last Documented On 08/19/2023 10:10AM ; [facility] Right carpal tunnel release August 05, 2023 - Last Documented On 08/19/2023 10:10AM ; [facility] Instructions Includes: Instructions from this encounter Instructions to patient Lose weight Last Documented On 4 8:38AM ; [facility] Medical Equipment - Implanted Devices Includes: Current Devices No Medical Equipment Recorded Medications Includes: Medications discussed during this encounter and other current Medications Current Medications (continue as prescribed) Trulicity 1.5 MG/0.5ML Subcutaneous Solution Pen-injec tor 09/28/2023 Provider: Diagnosis: Last Documented On 4 8:10AM By Pastora Ahumada ; [facility], [facility] Lantus SoloStar 100 UNIT/ML Subcutaneous Solutio n Pen-injector 05/28/2023 Provider: Diagnosis: Last Documented On 4 9:36AM By Pastora Ahumada ; [facility] Azelastine HCl 0.1% Nasal Solution 05/20/2023 Provid er: Diagnosis: Last Documented On 4 9:36AM By Pastora Ahumada ; [facility] Levocetirizine Dihydrochloride 5 MG Oral Tablet 2022 Provider: Diagnosis: Last Documented On 4 9:36AM By Pastora Ahumada ; [facility] NovoLOG 100 UNIT/ML Injection Solution 05/15/2023 Pr ovider: Diagnosis: Last Documented On 4 9:36AM By Pastora Ahumada ; [facility] Omnipod 5 G6 Pod (Gen 5) Miscellaneous 05/15/2023 Pr ovider: Diagnosis: Last Documented On 4 9:36AM By Pastora Ahumada ; [facility] Ozempic (2 MG/DOSE) 8 MG/3ML Subcutaneous Solution Pen-injector 05/15/2023 Provider: Saundra Herron APRN Diagnosis: Last Documented On 4 9:36AM By Pastora Ahumada ; [facility] Tolterodine Tartrate ER 2 MG Oral Capsule Extended Release 24 Hour 05/15/2023 Provider: Diagnosis: Last Documented On 4 9:36AM By Pastora Ahumada ; [facility] Vitamin D3 50 MCG (1999 UT) Oral Capsule 05/15/2023 Provider: Diagnosis: Last Documented On 4 9:36AM By Pastora Ahumada ; [facility] Dexcom G6 Sensor Miscellaneous 05/15/2023 Provider: Diagnosis: Last Documented On 4 9:36AM By Pastora Ahumada ; [facility] Cetirizine HCl 10 MG Oral Tablet 05/15/2023 Provider : Saundra Herron APRN Diagnosis: Last Documented On 4 9:36AM By Pastora Ahumada ; [facility] Dexcom G6 Transmitter Miscellaneous 05/15/2023 Provi deion: Diagnosis: Last Documented On 4 9:36AM By Pastora Ahumada ; [facility] BD Pen Needle Mini U/F 31G X 5 MM Miscellaneous 2022 Provider: Saundra Herron CLEANING PROFESSIONAL Diagnosis: Last Documented On 4 9:36AM By Pastora Ahumada ; [facility] Rybelsus 3 MG Oral Tablet 03/18/2023 Provider: Diagnosis: Last Documented On 4 9:36AM By Pastora Ahumada ; [facility] Basaglar KwikPen 100 UNIT/ML Subcutaneous Solution Pen-injector 02/27/2023 Provider: Saundra Herron CLEANING PROFESSIONAL Diagnosis: Last Documented On 4 9:36AM By Pastora Ahumada ; [facility] Past Medications on file HYDROcodone-Acetaminophen 5- 325 MG Oral Tablet 08/05/2023 - 08/20/2023 Provider: Daniel Pacheco MD Diagnosis: 1 po q 4h prn pain Last Documented On 4 9:38AM By Daniel Pacheco ; [facility] Medications Administered Includes: Administered Medications from this encounter No Administered Medications Recorded Vital Signs Includes: Vital Signs from this encounter Vital Name 08/19/2023 08:41A Height (in) 62 Weight (lb) 323 Body Mass Index 59.1 Body Surface Area 2.3 Pain Level 1 Note: Last Documented: On 08/19/2023 8:41AM ; [facility] Results Includes: Results discussed during this encounter No Results Recorded For Specified Dates History of Present Illness Includes: History of Present Illness from this encounter HPI Fina Lawton is a 48 year old female. - Allergy list reviewed - Problem list reviewed - Medication list reviewed Patient is here today for follow-up of her right carpal tunnel release 08/05/2023 she does feel better and the numbness and tingling is much better she wants to consider doing the left 1 next told her we could likely do this one in a month from now after she sees Dr. Pacheco at her next postop visit Social History Description Last Updated Exercising regularly 06/03/2023 Last Documented On 4 8:38AM ; [facility] No caffeine use 06/03/2023 Last Documented On 4 8:38AM ; [facility] No recent change in diet 06/03/2023 Last Documented On 4 8:38AM ; [facility] Not a current smoker. 06/03/2023 Last Documented On 4 8:38AM ; [facility] Not using alcohol 06/03/2023 Last Documented On 4 8:38AM ; [facility] Not using drugs 06/03/2023 Last Documented On 4 8:38AM ; [facility] Tobacco non-user 06/03/2023 Last Documented On 4 8:38AM ; [facility] Smoking Status Unknown Procedures and Surgical History Includes: Procedures from this encounter Procedures Code Diagnosis Performing Provider Service L ocation Service Date use of tobacco assessment performed 1000F Last Documented On 4 8:38AM ; [facility] review of medications documented 1160F Last Documented On 4 8:38AM ; [facility] [id number] Last Documented On 4 8:38AM ; [facility] Surgical History Last Updated History of hernia repair 06/03/2023 Last Documented On 4 8:38AM ; [facility] History of hysterectomy 06/03/2023 Last Documented On 4 8:38AM ; [facility] Medical History Includes: Medical History addressed during this encounter Description Last Updated History of diabetes mellitus 06/03/2023 Last Documented On 4 8:38AM ; [facility] Family History Includes: Family History addressed during this encounter Description Last Updated Diabetes mellitus 06/03/2023 Last Documented On 4 8:38AM ; [facility] Family history of systemic hypertension 06/03/2023 Last Documented On 4 8:38AM ; [facility] Stroke / Seizures 06/03/2023 Last Documented On 4 8:38AM ; [facility] Review of Systems Includes: Review of [...] and no abdominal pain. No Indigestion, no Acid Reflux, no Peptic Ulcer, no GI Stomach Bleed, and no Ulcers. Endocrine: No hot flashes, no muscle weakness, [...] Active Last Documented On 4 8:10AM ; [facility] Bactrim Allergy 06/03/2023 Active Last Documented On 4 8:10AM ; [facility] Encounters Encounter Provider Location Date Check-In Time Check-Out Time Diagnosis Post Op Edgar Clement PA-C [facility] 4 8:35AM 9:00AM Overweight Insurance Includes: Active Insurance Policies Plan Name Member ID Group # Subscriber Relationship Effect shanique Dates 1 - [facility] [id number] Fina Lawton Self 2 - [employer] [facility] [id number] Fina Lawton Self 4 - Unknown Clinical Notes Includes: Clinical Notes from this encounter * Progress note Date Encounter Last Documented by 08/19/2023 Post Op Last documented on 08/19/2023; 10:10 AM, Edgar Clement PA-C; [facility], [facility] Active Problems & Conditions - Pain in Both Hands Chief Complaint The Chief Complaint is: Right carpal tunnel release. Referred Here Referred by Sherley Flores [facility]. History of Present Illness Fina Lawton is a 48 year old female. - Allergy list reviewed - Problem list reviewed - Medication list reviewed Patient is here today for follow-up of her right carpal tunnel release 08/05/2023 she does feel better and the numbness and tingling is much better she wants to consider doing the left 1 next told her we could likely do this one in a month from now after she sees Dr. Pacheco at her next postop visit Current Medication - Azelastine HCl 0.1% Nasal [...] Transmitter Miscellaneous 90 days, 0 refills - HYDROcodone-Acetaminophen 5-325 MG Oral Tablet 1 po q 4h prn pain, 15 days, 0 refills - Lantus SoloStar 100 [...] 24 Hour 30 days, 0 refills - Vitamin D3 50 MCG (2000 UT) Oral Capsule 30 days, 0 refills Past Medical/Surgical History Diagnoses: Diabetes mellitus Surgical: - Hernia repair - Hysterectomy Social History [...] and no abdominal pain. No Indigestion, no Acid Reflux, no Peptic Ulcer, no GI Stomach Bleed, and no Ulcers. Endocrine: No hot flashes, no muscle weakness, [...] allergic reaction. Physical Findings - Vitals taken 08/19/2023 08:41 am lc Height 62 in Weight 323 lbs Body Mass Index 59.1 kg/m2 Body Surface Area 2.3 m2 Pain Level 1 The incision looks clean dry intact she is able to make a full fist. Tests EMG from September 2022 had showed bilateral mild carpal tunnel Assessment - Overweight Right carpal tunnel release August 05, 2023 Previous Tests Laboratory Studies: Neuro-Electrical Functions: [facility]. Available previous imaging studies were reviewed Available previous history reviewed Counseling/Education - Lose weight Plan Patient was seen by myself Edgar Clement PA-C. Patient will follow up [address] Pacheco and then she consider doing the left one sometime after that. We will get her sutures out today. Make sure she has not lifting anything heavy with this right hand at this point in time Notes This dictation was done with voice recognition software and may contain errors and omissions. Practice Management Use of tobacco assessment performed Review of medications documented. Care Team - Sherley Pacheco APRN Health Reminders - Assess BMI satisfied 08/19/2023. - Assess Tobacco Use satisfied 06/03/2023. - Follow Up Plan BMI Management satisfied 08/19/2023.
== END 2023-11-17 23:59 | disposition home or self-care (01) ==
LOC: SC 15:38
PROVIDERS: Visit Provider Specialist/Technologist
DX: Z00.00 Encounter for general adult medical examination without abnormal findings (principal)

== ENCOUNTER 2024-09-07 10:24 | Outpatient (RCR) | payer BC, OTHER, SELFPAY | END 2024-09-07 23:59 | disposition home or self-care (01) | LOC: PT 10:24 | PROVIDERS: Visit Provider Nurse Practitioner | DX: I89.0 Lymphedema, not elsewhere classified (principal) | CPT/HCPCS: 97163 ==

== ENCOUNTER 2025-04-05 07:22 | Outpatient (CLI) | payer BC, OTHER, SELFPAY ==
--- OUTSIDE RECORDS SUMMARY | 2024-08-27 16:30 | XMS_ITS ---
Author Organization [facility] Address [address] [place] [address] Care Team Providers Care Coal Cager Name Role Phone Zohaib Teixeira Primary Care Provider Zohaib Teixeira Unavailable Unavailable Migration, Provider Unavailable Unavailable Allergies Allergen (clinical drug ingredient) Drug/Non Drug Allergy documented on EMR Reaction Allergy Type Onset Date Status atorvastatin Lipitor muscle cramps Drug Allergy Active sulfamethoxazole / trimethoprim Bactrim rash Drug Allergy Active REASON FOR VISIT [facility] Encounter Medications Medication SIG (Take, Route, Frequency, Duration) Notes Start Date End Date Status Nystatin 316693 UNIT/ML 4 mL orally 4 times a day; Duration: 10 days 11/03/2022 Active Lantus SoloStar 100 UNIT/ML 70 units subcutaneously at bedtime; Duration: 30 days 11/03/2022 Active NovoLIN 70/30 (70-30) 100 UNIT/ML 40 units subcutaneously with breakfast daily; Duration: 30 days 11/03/2022 Active NovoLIN R FlexPen HUMAN RECOMBINANT 100 UNITS/ML 40 UNITS SUBCUTANEOUSLY WITH SUPPER DAILY; Duration: 30 DAYS *Please review and pick correct strength-formulati on from [facility] options. If intended option is not shown, discontinue and re-order from Quick Search* 11/03/2022 Active OZEMPIC 2 MG/3 ML (0.25 MG OR 0.5 MG DOSE) 0.25MG SUBCUTANEOUSLY ONCE A WEEK; Duration: 30 DAYS *Please review for potential replacement for e-prescription and drug interaction check* 11/07/2022 Active Basaglar KwikPen 100 UNIT/ML 70 units subcutaneously 2 times daily Active OZEMPIC 4 MG/3 ML DIRECTED SUBCUTANEOUSLY ONCE A WEEK *Please review for potential replacement for e-prescription and drug interaction check* Active COLESEVELAM 625 MG 3 TAB(S) ORALLY 2 TIMES A DAY *Please review for potential replacement for e-prescription and drug interaction check* Active NovoLIN R 100 UNIT/ML 40 units subcutaneously 2 times daily Active Encounters Encounter Location Date Provider Diagnosis [facility] [address] [place], [place] [address] 08/27/2024 Provider Migration Type 2 diabetes mellitus without complications E11.9 and terminal operator (current) use of insulin Z79.4 Assessments Encounter Date Diagnosis (ICD Code) Assessment Notes Treatment Notes Treatment Clinical Notes Section Notes 08/27/2024 Type 2 diabetes mellitus without complications (ICD-10 - E11.9) 08/27/2024 custodial (current) use of insulin (ICD-10 - Z79.4) Plan Of Treatment Medication Medication Name Sig Start Date Stop Date Notes Nystatin 491367 UNIT/ML 4 mL orally 4 times a day; Duration: 10 days 11/03/2022 Lantus SoloStar 100 UNIT/ML 70 units subcutaneously at bedtime; Duration: 30 days 11/03/2022 NovoLIN 70/30 (70-30) 100 UNIT/ML 40 units subcutaneously with breakfast daily; Duration: 30 days 11/03/2022 NovoLIN R FlexPen HUMAN RECOMBINANT 100 UNITS/ML 40 UNITS SUBCUTANEOUSLY WITH SUPPER DAILY; Duration: 30 DAYS 11/03/2022 *Please review and pick correct strength-formulation from [facility] options. If intended option is not shown, discontinue and re-order from Quick Search* OZEMPIC 2 MG/3 ML (0.25 MG OR 0.5 MG DOSE) 0.25MG SUBCUTANEOUSLY ONCE A WEEK; Duration: 30 DAYS 11/07/2022 *Please review for potential replacement for e-prescription and drug interaction check* Progress Notes * Fina JEANDOB: 4 (49 yo F)Acc No.[id number]:08/27/2024 Patient: Nando MINERFina NGUYỄN Provider: Nava eugene Migration :1975 A ge:49 Y S ex:Female Date:08/27/2024 Address:[address] [place] [address] [id number] Pcp:Zohaib Teixeira Subjective: * Chief Complaints: * 1 . Multum To [employer] Conversion Encounter. * Medical History: * Medications: T aking COLESEVELAM 625 MG TABLET 3 TAB(S) ORALLY 2 TIMES A DAY , Notes to Pharmacist: *Please review for potential replacement for e-prescription and drug interaction check*, Taking NovoLIN R 100 UNIT/ML Solution 40 units subcutaneously 2 times daily , Taking OZEMPIC 4 MG/3 ML SOLUTION DIRECTED SUBCUTANEOUSLY ONCE A WEEK , Notes to Pharmacist: *Please review for potential replacement for e-prescription and drug interaction check*, Taking Basaglar KwikPen 100 UNIT/ML Solution Pen-injector 70 units subcutaneously 2 times daily * Allergies: L ipitor: muscle cramps, Bactrim: rash - Allergy. Objective: * Vitals: Assessment: * Assessment: 1. L brittany term (current) use of insulin - Z79.4 (Primary) 2 . T ype 2 diabetes mellitus without complications - E11.9 Plan: * Treatment: 2. T ype 2 diabetes mellitus without complications Start NovoLIN R FlexPen SOLUTION, HUMAN RECOMBINANT 100 UNITS/ML, 40 UNITS, SUBCUTANEOUSLY, WITH SUPPER DAILY, 30 DAYS, 1, Refills 1, Notes to Pharmacist: *Please review and pick correct strength-formulation from [facility] options. If intended option is not shown, discontinue and re-order from Quick Search*; S tart NovoLIN 70/30 Suspension, (70-30) 100 UNIT/ML, 40 units, subcutaneously, with breakfast daily, 30 days, 1, Refills 1; S tart Lantus SoloStar Solution Pen-injector, 100 UNIT/ML, 70 units, subcutaneously, at bedtime, 30 days, 1, Refills 1. 3. O thers Start OZEMPIC SOLUTION, 2 MG/3 ML (0.25 MG OR 0.5 MG DOSE), 0.25MG, SUBCUTANEOUSLY, ONCE A WEEK, 30 DAYS, 4, Refills 1, Notes to Pharmacist: *Please review for potential replacement for e-prescription and drug interaction check*. * * Electronic signature of Prov ider Migration on 04/05/2025 at 07:25 AM EST Sign off status: Pending * Provider: Nava eugene Migration Date: 0 08/27/2024 Generated for Sara fonseca/Betty/Maddie on: 1 06/05/2024 07:25 AM EST
--- NOTE | 2025-04-05 | CA_ITS ---
FINAL REPORT TECHNIQUE: Compression rasmussen scale and Doppler evaluation CLINICAL HISTORY: Pt fell 1 week ago, landed on right leg. Pt has Right leg pain, DM, obesity FINDINGS: Femoral and popliteal veins show normal compressibility and flow. Visualized portion of the calf veins are patent by Doppler exam. IMPRESSION: No evidence of right lower extremity deep venous thrombosis Reviewed, Interpreted and Dictated by Sophia Corrales MD Transcribed by Jeannette Alvarez Authenticated and [facility]
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
--- OUTSIDE RECORDS SUMMARY | 2025-04-05 07:25 | XMS_ITS | Patient Health Record ---
Author Organization [facility] Address [address] [place] [address] Care Team Providers Care Delivery Architect Name Role Phone Zohaib Teixeira Primary Care Provider [phone] Zohaib Teixeira Unavailable Unavailable Migration, Provider Unavailable Unavailable Allergies Allergen (clinical drug ingredient) Drug/Non Drug Allergy documented on EMR Reaction Allergy Type Onset Date Status atorvastatin Lipitor muscle cramps Drug Allergy Active sulfamethoxazole / trimethoprim Bactrim rash Drug Allergy Active Medications Medication SIG (Take, Route, Frequency, Duration) Notes Start Date End Date Status Nystatin 268414 UNIT/ML 4 mL orally 4 times a day; Duration: 10 days 11/03/2022 Active Lantus SoloStar 100 UNIT/ML 70 units subcutaneously at bedtime; Duration: 30 days 11/03/2022 Active Basaglar KwikPen 100 UNIT/ML 70 units subcutaneously 2 times daily Active OZEMPIC 4 MG/3 ML DIRECTED SUBCUTANEOUSLY ONCE A WEEK *Please review for potential replacement for e-prescription and drug interaction check* Active NovoLIN 70/30 (70-30) 100 UNIT/ML 40 units subcutaneously with breakfast daily; Duration: 30 days 11/03/2022 Active NovoLIN R FlexPen HUMAN RECOMBINANT 100 UNITS/ML 40 UNITS SUBCUTANEOUSLY WITH SUPPER DAILY; Duration: 30 DAYS *Please review and pick correct strength-formulati on from Medispan options. If intended option is not shown, discontinue and re-order from Quick Search* 11/03/2022 Active COLESEVELAM 625 MG 3 TAB(S) ORALLY 2 TIMES A DAY *Please review for potential replacement for e-prescription and drug interaction check* Active OZEMPIC 2 MG/3 ML (0.25 MG OR 0.5 MG DOSE) 0.25MG SUBCUTANEOUSLY ONCE A WEEK; Duration: 30 DAYS *Please review for potential replacement for e-prescription and drug interaction check* 11/07/2022 Active NovoLIN R 100 UNIT/ML 40 units subcutaneously 2 times daily Active Immunizations Vaccine Route Administration Date Status Comme nts Fluvirin--Influenza vaccine 3+ year IM Intramuscular 03/05/2007 Administered Social History Tobacco Use: Social History Observation Description Date Details (start date - stop date) Never Smoker NA - NA Smoking: Question Answer Notes Are you a: nonsmoker Section Notes: Lives with 4 and 8 year old grandchildren. Works at [employer]. Problems Problem Type SNOMED Code ICD Code Onset Dates Problem Status W/U Status Risk Notes Problem Type II diabetes mellitus without complication (979333781) Type 2 diabetes mellitus without complications (E11.9) Active confirmed Problem Long-term current use of insulin (181469907) group home (current) use of insulin (Z79.4) Active confirmed Encounters Encounter Location Date Provider Diagnosis [facility] [address] [place] [address] 08/27/2024 Provider Migration Type 2 diabetes mellitus without complications E11.9 and group home (current) use of insulin Z79.4 Assessments Encounter Date Diagnosis (ICD Code) Assessment Notes Treatment Notes Treatment Clinical Notes Section Notes 08/27/2024 Type 2 diabetes mellitus without complications (ICD-10 - E11.9) 08/27/2024 ferry terminal agent (current) use of insulin (ICD-10 - Z79.4) Plan Of Treatment Pending Test Test Name Order Date MRI : Lumbosacral Spine 09/25/2008 Insurance Providers Payer Name Payer Address Payer Phone Subscriber Number Group Number Insured Name Patient Relationship to Insured Coverage Start Date Coverage End Date [facility] [employer] [facility] [address] [place] [address] [id number] Fina Lawton Self - patient is the insured [employer] [address] [address] [place] [address] [id number] Fina Lawton Self - patient is the insured Medical (General) History Medical History History ICD Code IDDM congenital hyperplastic endometrium hyperlipidemia type II diabetes anxiety carpal tunnel Surgical History Surgery Date(Month/Year) hernia repair 2004 D&C 2004 C section Hospitalization History Reason Date(Month/Year) [facility], flesh eating bacteria nec fasc? 20 21
--- OUTSIDE RECORDS SUMMARY | 2025-04-05 07:25 | XMS_ITS | Clinical Summary ---
[facility] Organization [facility] Address [address] [place] [address] Care Team Providers Care Tennis Desk Team Member Name Role Phone Provider, No Known Primary Care Provider Unavail able Allergies Active Allergy Reactions Criticality Noted Date Comments Sulfamethoxazole-Trimethoprim Rash Low 2019 Atorvastatin Calcium Rash Low 05/09/2020 Medications Insulin Glargine (BASAGLAR KWIKPEN) 100 UNIT/ML injection pen INJECT 60 UNITS SUBCUTANEOUSLY ONCE DAILY AND INCREASE 5 UNITS EVERY 3 DAYS UP TO 80 UNITS IF BLOOD GLUCOSE IS RUNNING ABOVE 170 9 Active SITagliptin (JANUVIA) 50 MG tablet Take 50 mg by mouth Daily. Active Active Problems Problem Noted Date Diagnosed Date Morbid obesity with BMI of 50.0-59.9, adult Fatigue Dyspepsia Dyspnea on exertion RLS (restless legs syndrome) DM2 (diabetes mellitus, type 2) Overview (07/07/2019): dx 20+yrs ago, on insulin x 15 yrs, A1C unknown, managed by PCP Family History Medical History Relation Name Comments Diabetes Father Leukemia Father Diabetes Mother Heart attack Mother Relation Name Status Comments Father Mother Alive Social History Tobacco Use Types Packs/Day Years Used Date Smoking Tobacco: Never Smokeless Tobacco: Never Alcohol Use Standard Drinks/Week Comments Never 0 (1 standard drink = 0.6 oz pur e alcohol) AUDIT-C Answer Date Recorded Q1: How often do you have a drink containing alc ohol? Never 05/09/2020 Average Number of Drinks Not on file 020 Frequency of Binge Drinking Not on file 04/24 Abuse Screen Answer Date Recorded Unsafe at Home or Work/School Not on file Feels Threatened by Someone? Not on file 04/2023 Does Anyone Keep You from Co ntacting Others or Doint Things Outside the Home? Not on file 03/05/2023 Physical Sign of Abuse Present Not on file 1 Housing Stability Answer Date Recorded Current Living Arrangements Not on file 02/22 Potentially Unsafe Housing Conditions Not on ruby e 03/05/2023 Family and Community Support Answer Sly e Recorded Help with Day-to-Day Activities Not on file 03/05/2023 Lonely or Isolated Not on file 03/05/2023 Employment Answer Date Recorded Do you want help finding or keeping work or a collin b? Not on file 03/05/2023 Disabilities Answer Date Recorded Concentrating, Remembering, or Making Decisions Difficulty Not on file 03/05/2023 Doing Errands Independently Difficulty Not on fi le 03/05/2023 Education Answer Date Recorded Help with school or training? Not on file Preferred Language Not on file 03/05/2023 Comments Unknown Sex and Gender Information Value Date Recorded Sex Assigned at Not on file Legal Sex Female 9:46 AM EST Gender Identity Not on file Sexual Orientation Not on file Last Filed Vital Signs Vital Sign Reading Time Taken Comments Blood Pressure 143/72 05/11/2020 12:35 PM EST Pulse 89 05/11/2020 12:35 PM EST Temperature 36.3 C (97.3 F) 07/07/2019 7:52 AM EST Respiratory Rate 18 07/07/2019 7:52 AM EST Oxygen Saturation 95% 05/09/2020 9:18 AM EST Inhaled Oxygen Concentration - - Weight 148 kg (327 lb) 05/11/2020 12:35 PM EST Height 157.5 cm (5' 2.01 ) 05/11/2020 12:[address] Body Mass Index 59.79 05/11/2020 12:35 PM EST Plan of Treatment Health Maintenance Due Date Last Done Comments Annual Gynecologic Pelvic an d Breast Exam 1975 MAMMOGRAM 2013 COLOGUARD 2018 COLON CANCER SCREENING 5 YEA R SIGMOIDOSCOPY 2018 COLONOSCOPY 2018 COLORECTAL CANCER SCREENING 2018 CT COLONOGRAPHY 2018 FECAL OCCULT BLOOD TEST 2018 FIT Testing (1 year) 2018 ANNUAL PHYSICAL 07/07/2019 HEPATITIS C SCREENING 07/07/2019 Pneumococcal Vaccine 50+ (2 of 2 - PCV) 2023 1 ZOSTER VACCINE (1 of 2) 2023 INFLUENZA VACCINE 12/23/2024 12/28/2019 TDAP/TD VACCINES (3 - Td or Tdap) 03/16/2029 019, 05/07/2006 HEMOGLOBIN A1C Discontinued 07/07/2019 Procedures Procedure Name Priority Date/Time Associated Diagnosis Comments HEMOGLOBIN A1C Routine 07/07/2019 10:36 AM EST Diabetes mellitus type 2 in obese Fatigue, unspecified type Dyspepsia from Last 3 Months or Most Recently Relevant to Health Maintenance Results * (ABNORMAL) Hemoglobin A1c (07/07/2019 10:36 AM EST) Hemoglobin A1C 9.00(H) 4.80 - 5.60 % [facility] Comment: Hemoglobin A1C Ranges: Increased Risk for Diabetes 5.7% to 6.4% Diabetes >= 6.5% Diabetic Goal < 7.0% Blood 07/07/2019 10:3 6 AM EST 07/07/2019 Narrative [facility]) - 07/08/2019 5:07 PM EST Performed at: [address] [place] [address] [phone] Product Finisher: Benton Sarmiento MD, Phone: [phone] Patient Fasting: N us Beatris VERMA LAB BLOOD ORDERABLES Final Result [facility] [address] [place] [address], [facility] [address] [place] [address], [place] [phone] from Last 3 Months or Most Recently Relevant to Health Maintenance Insurance [facility] [place] [facility] [address] EMPLOYEE Care Teams Tennis Desk Team Member Relationship Specialty Start Date End Date Provider, [place] [address] PCP - General 02/17/24
--- OUTSIDE RECORDS SUMMARY | 2025-04-05 07:25 | XMS_ITS | Encounter Summary ---
Author Organization [facility] Address [address] [place] [address] Care Team Providers Care Undergraduate Internship Name Role Phone Barbara Love MD Primary Care Provider [phone] Yuly Bejarano MD Unavailable Pcp, No Primary Care Provider Unavailabl e Encounter Details Date Type Department Care Team ([facility] st Contact Info) Description 03/05/2022 Outside Procedure External Location [address] [place] [address] Barbara Love MD [address] [place] [address] Social History Tobacco Use Types Packs/Day Years Used Date Smoking Tobacco: Never Smokeless Tobacco: Never Alcohol Use Standard Drinks/Week Comments No 0 (1 standard drink = 0.6 oz pur e alcohol) PHQ-2 Answer Date Recorded Patient Health Questionnaire-2 Score 0 02/19/2022 Comments No Sex and Gender Information Value Date Recorded Sex Assigned at Female 03/21/2021 6:47 AM EDT Legal Sex Female 8:41 PM EDT Gender Identity Female 03/21/2021 6:47 AM EDT Sexual Orientation Not on file COVID-19 Exposure Response Date Recorded In the last 10 days, have yo u been in contact with someone who was confirmed or suspected to have Coronavirus/COVID-19? No / Unsure 03/03/2022 8:48 AM EDT documented as of this encounter Plan of Treatment Not on file documented as of this encounter Procedures Procedure Name Priority Date/Time Associated Diagnosis Comments MAMMOGRAPHY BREAST SCREENING TOMOSYNTHESIS BILATERAL 03/05/2022 12:11 PM EDT documented in this encounter Results * Mammography Breast Screening Tomosynthesis Bilateral (03/05/2022 12:11 PM EDT) Anatomical Region Laterality Modality Breast Bilateral Mammography 03/05/2022 12:1 1 PM EDT Narrative 03/05/2022 2:32 [place] [address] Name: FINA JEAN Exam Date: 03/05/2022 : 1975 Age 46 Gender: F Physician: BARBARA VILLATORO Facility: [facility] Facility HSV: Outpatient Exam: RODOLFO SCRN MAMMO [...] Thank you for referring FINA JEAN to [facility]. Legally authenticated by ELVIRA BURROUGHS 2022-03-05 14:19:43 Procedure Note Provider, Generic [place] - 03/05/2022 [place] [address] Name: FINA JEAN Exam Date: 03/05/2022 : 1975 Age 46 Gender: F Physician: BARBARA VILLATORO Facility: [facility] Facility HSV: Outpatient Exam: RODOLFO SCRN MAMMO [...] Thank you for referring FINA JEAN to [facility]. Legally authenticated by ELVIRA BURROUGHS 2022-03-05 14:19:43 Barbara Love MD IMG BI PROCEDURES Final Result documented in this encounter Visit Diagnoses Not on filedocumented in this encounter Additional Health Concerns Assessment Noted Time A fall risk assessment has been complete d for the patient 06/24/2021 8:52 AM EST documented as of this encounter Care Teams Undergraduate Internship Relationship Specialty Start Date End Date Barbara Love MD [address] [place] [address] PCP - General 10/05/20 10/21/22 Pcp, Kelley [address] [place] [address] PCP - General Family Medicine 02/09/23 Yuly Bejarano MD [address] [place] [address] Consulting Physician Neurology 02/28/22 documented as of this encounter
== END 2025-04-05 23:59 | disposition home or self-care (01) ==
LOC: RT 07:23
PROVIDERS: PCP Nurse Practitioner; Visit Provider Nurse Practitioner
DX: E11.9 Type 2 diabetes mellitus without complications (principal); E66.9 Obesity, unspecified; M79.604 Pain in right leg; R60.0 Localized edema; W19.XXXA Unspecified fall, initial encounter
CPT/HCPCS: 93971

== ENCOUNTER 2025-04-29 08:17 | Outpatient (CLI) | payer BC, OTHER, SELFPAY ==
--- OUTSIDE RECORDS SUMMARY | 2025-04-29 08:20 | XMS_ITS | Clinical Summary ---
Author Organization [facility] Address [address] [place] [address] Care Team Providers Care Commercial Account Executive Name Role Phone Provider, No Known Primary [...] 2023 INFLUENZA VACCINE 12/23/2024 12/28/2019 TDAP/TD VACCINES (2 - Td or Tdap) 03/16/2029 019, 05/07/2006 [...] - 07/08/2019 5:07 PM EST Performed at: [address] [place] [id number] Office Automation Clerk: Benton Sarmiento MD, Phone: [phone] Patient Fasting: N us Beatris [facility] LAB BLOOD ORDERABLES Final Result [facility] [address] [place] [address], [facility] [address] [place] [address], [place] [phone] from Last 3 Months or Most Recently Relevant to Health Maintenance Insurance [facility] [place] [facility] [address] EMPLOYEE Care Teams Commercial Account Executive Relationship Specialty Start Date End Date Provider, [place] [address] PCP - General 02/17/24
--- OUTSIDE RECORDS SUMMARY | 2025-04-29 08:20 | XMS_ITS | Encounter Summary ---
Author Organization [facility] Address [address] [place] [address] Care Team Providers Care Retanner Name Role Phone Barbara Love MD Primary Care Provider [phone] Yuly Bejarano MD Unavailable Pcp, No Primary Care Provider Unavailabl e Encounter Details Date Type Department Care Team ([facility] st Contact Info) Description 03/05/2022 Outside Procedure External Location [address] [place] [address] Barbara Love MD [address] [place] [address] Social History Tobacco Use Types [...] PM EDT Narrative 03/05/2022 2:32 [place] [address] Name: FINA JEAN Exam Date: 03/05/2022 : 1975 Age 46 Gender: F Physician: BARBARA VILLATORO Facility: [facility] Facility HSV: Outpatient Exam: RODOLFO SCRN [...] Thank you for referring FINA JEAN to [facility]. Legally authenticated by ELVIRA BURROUGHS 2022-03-05 14:19:43 Procedure Note Provider, Generic [place] - 03/05/2022 [place] [address] Name: FINA JEAN Exam Date: 03/05/2022 : 1975 Age 46 Gender: F Physician: BARBARA VILLATORO Facility: [facility] Facility HSV: Outpatient Exam: RODOLFO SCRN [...] Thank you for referring FINA JEAN to [facility]. Legally authenticated by ELVIRA BURROUGHS 2022-03-05 14:19:43 Barbara Love MD IMG BI PROCEDURES Final Result documented in this encounter Visit Diagnoses Not on filedocumented in this encounter Additional Health Concerns Assessment Noted Time A fall risk assessment has been complete d for the patient 06/24/2021 8:52 AM EST documented as of this encounter Care Teams Retanner Relationship Specialty Start Date End Date Barbara Love MD [address] [place] [address] PCP - General 10/05/20 10/21/22 Pcp, Kelley [address] [place] [address] PCP - General Family Medicine 02/09/23 Yuly Bejarano MD [address] [place] [address] Consulting Physician Neurology 02/28/22 documented as of this encounter
--- OUTSIDE RECORDS SUMMARY | 2025-04-29 08:20 | XMS_ITS | Clinical Summary ---
Author Organization [facility] Address [address] [place] [address] Care Team Providers Care Supervisor Furnace Room Name Role Phone Yuly Bejarano MD Unavailable [...] 3 TO 4 TIMES DAILY 100 each 11 12/13/19 22 Active loratadine (Claritin) 10 MG [...] 30 mL 2 03/14/20 Active glucose blood ([employer] [employer] Ultra) test stripIndication s:Diabetes mellitus type 2 [...] Date Last Done Comments [facility]-HIV Screening 1975 [facility]-Infant/Child/Adol SDOH Screenings 1975 Diabetes: Dental Exam 1983 [...] 02/10/2024 02/09/2023 [facility]-Breast Cancer Screening 03/05/2024 03/05/2022 [id number] Vaccine ( season) 2025 05/07/2022, 12/11/2021, 02/22/2021, [...] Adults <6.0% Children and Adolescents <7.5% Source: [place] Diabetes Association. Standards of medical care in diabetes,2017. Diabetes Care.2017:40 (suppl 1):S1-S135. HbA1c assay performed by an ion-exchange chromatography method that is certified traceable to the DCCT. us Barbara Love MD LAB BLOOD ORDERABLES Final Res ult [facility] [address] [place] [address] * Mammography Breast Screening Tomosynthesis Bilateral (03/05/2022 12:11 PM EDT) Anatomical Region Laterality Modality Breast Bilateral Mammography 03/05/2022 12:1 1 PM EDT Narrative 03/05/2022 2:32 [place] [address] Name: FINA JEAN Exam Date: 03/05/2022 : 1975 Age 46 Gender: F Physician: BARBARA VILLATORO Facility: [facility] Facility HSV: Outpatient Exam: RODOLFO SCRN [...] Thank you for referring FINA JEAN to [facility]. Legally authenticated by ELVIRA BURROUGHS 2022-03-05 14:19:43 Procedure Note Provider, Generic [place] - 03/05/2022 [place] [address] Name: FINA JEAN Exam Date: 03/05/2022 : 1975 Age 46 Gender: F Physician: BARBARA VILLATORO Facility: [facility] Facility HSV: Outpatient Exam: RODOLFO SCRN [...] Thank you for referring FINA JEAN to [facility]. Legally authenticated by ELVIRA BURROUGHS 2022-03-05 14:19:43 Barbara Love MD IMG BI PROCEDURES Final Result * [place] Hepatitis C Antibody (08/13/2018 2:13 PM EDT) [place] Hepatitis C Ab NEGATIVE Reference Range: Negative [facility] 08/13/2018 2:13 PM EDT 08/13/2018 2:27 PM EDT Historical Provider LAB BLOOD ORDERABLES Final R esult [facility] * Cytology (07/30/2005 12:00 AM EST) 07/30/2005 07/31/2005 12: 42 PM EST Narrative [facility] - 08/05/2005 9:51 AM EST [facility] MR #: [id number] [facility] FINA JEAN [place], [place] [address] 1975 (Age: 30) FW Collect Date: 07/30/2005 00:00 Receipt Date: 07/31/2005 12:42 Page 1 DEPARTMENT OF PATHOLOGY AND LABORATORY MEDICINE CYTOPATHOLOGY REPORT Email: [email or web address] [phone] ATTENDING MD/Practitioner: Everett Mcqueen M.D. Service: JG Location: JG Reported: 08/05/2005 09:51 Collected: 07/30/2005 [...] results is suggested (please call Microbiology at [phone] for results). CLINICAL INFORMATION: Menstrual History: {Not Provided} Date of Last Menstrual Period: {Not Provided} Other Clinical Conditions: Previous bank teller bx/surgery: atypical endometrial hyperplasia 2004 Abnormal bleeding SPECIMEN DESCRIPTION: A: THIN PREP (CERVICAL/VAGINAL) THIN PREP PROCESS CELLULAR ENHANCEMENT ICD: 112.1 CANDIDIASIS OF VULVA AND VAGINA 621.33 ENDOMETRIAL HYPERPLASIA WITH ATYPIA F: A; DX IMAGE 76546, DX IMAGE 59906 <CR>, [place] [address] SNOMED CODES: A; [id number] [id number] [id number] In cases where a pathologist has signed [...] Patient has decision-making capacity? Yes Care Teams Supervisor Furnace Room Relationship Specialty Start Date End Date Pcp, No [address] [place] [address] PCP - General Family Medicine 02/09/23 Yuly Bejarano MD [address] [place] [address] Consulting Physician Neurology 02/28/22
[2025-04-29 09:42] LABS: Alanine Aminotransferase 39 U/L (12-78); Albumin Level 4.1 g/dl (3.5-5.0); Albumin/Globulin Ratio 1.2 (1.1-1.8); Alkaline Phosphatase 60 U/L (38-126); Anion Gap 10.5 mEq/L (5-15); Aspartate Amino Transferase 38 U/L (14-36); Bilirubin,Total 0.6 mg/dl (0.2-1.3); Blood Urea Nitrogen 6 mg/dl (7-17); Calcium 9.6 mg/dl (8.4-10.2); Carbon Dioxide 29 mmol/L (22.0-30.0); Chloride 103 mmol/L (98-107); Cholesterol 192 mg/dl (140-200); Creatinine,Serum 0.50 mg/dl (0.52-1.04); Estimated Glomerular Filt Rate 130 ml/min (>60); GFR (African American) 157 ML/MIN (>60); Globulin 3.5 g/dL (1.3-3.2); Glucose 111 mg/dl (74-100); HDL Cholesterol 32 mg/dl (40-60); Potassium 4.5 mmoL/L (3.5-5.1); Sodium 138 mmol/L (136-145); Total Protein,Serum 7.6 g/dl (6.3-8.2); Triglycerides 147 mg/dl (30-150)
[2025-04-29 10:13] LABS: Thyroid Stimulating Hormone 0.31 uIU/mL (0.465-4.68)
[2025-04-29 11:12] LABS: Hemoglobin A1C 8.2 % (4.0-6.0)
== END 2025-04-29 23:59 | disposition home or self-care (01) ==
LOC: LAB 08:18
PROVIDERS: PCP Nurse Practitioner; Visit Provider Student in an Organized Health Care Education/Training Program
DX: E11.65 Type 2 diabetes mellitus with hyperglycemia (principal); Z79.4 Long term (current) use of insulin
CPT/HCPCS: 36415; 80053; 80061; 82043; 83036; 84443